=== PATIENT | female | born 1935 | race Caucasian/White ===

== ENCOUNTER → 2016-11-04 | Outpatient (CLI) | payer OTHER | LOC: LAB 10:43 | PROVIDERS: ATTEND Internal Medicine Gastroenterology | DX: K64.0 First degree hemorrhoids (principal) | CPT/HCPCS: 82270 ==

== ENCOUNTER 2016-12-30 15:54 | Inpatient (IN) | payer OTHER ==
--- NOTE | 2016-12-30 16:30 | RAD ---
Examination: X-rays of the right shoulder. Clinical history: Fell in the yd, right shoulder pain. Technique: Three views of the right shoulder were obtained. Comparison: None available. Findings: The bones are diffusely osteopenic. There is a comminuted fracture of the proximal humerus, with displacement of fracture fragments at th e fracture site. There is mild distraction of the fracture fragments, with no appreciable angulation noted. No soft tissue abnormality is noted. Impression: 1. Fracture of the proximal right humerus. Reported By:
--- NOTE | 2016-12-30 16:49 | DR.GENAD ---
HPI - PCP Primary Care Physician: REINA DAVIS - HPI Comment HPI Comment: NO LOSS OF CONSCIOUSNESS. DID NOT HIT HEAD. SEVERE PAIN REPORTED. - Complaint/Symptoms Chief Complaint Doctors Comments: FELL AT HOME DOING YARD WORK. SWELLING AND PAIN RIGHT SHOULDER. Chief Complaint:: PT C/O BEING OUTSIDE AND CLEANING UP HER YARD AND SHE TRIPPED OVER A ROUTE AND SHE HIT THE GROUND ON HER RIGHT SHOULDER AND SHE THINKS SHE MAY OF HIT HER RIGHT SHOULDER ON ROOT.. Self Treatment fo Chief Complaint: NO ABN NOTED PT IS HOLDING HER RIGHT SHOULDER AND SHE SAYS IT ONLY HURTS WHEN SHE MOVES... - Nurses notes reviewed Nurses Notes Review: Yes - Source History Provided: Patient, EMS - Mode of Arrival Mode of Arrival: EMS - Timing Onset of Chief Complaint: 12/30/16 Came on: Suddenly - Duration Duration: Constant Duration: Hours - Severity Severity: Moderate PMH - PMH Past Medical History: Yes Past Medical History: Hypertension Past Medical History Comment: SKIN CANCER Past Surgical History: Yes - Family History History of Family Medical Conditions: No - Social History Does patient currently use any type of tobacco product: No Have you used tobacco products in the last 12 months: No Type of Tobacco Use: None Does any household member use tobacco: No Alcohol Use: None Do you use any recreational Drugs:: No Lives With: Alone Lives Where: Home - infectious screening In the last 2 months have you had wt loss of >10#?: NO Have you had fever, night sweats or hemotysis?: No Have you traveled outside the country in the last 6 months?: No Isolation: Standard ROS - Review of Systems Constitutional: No Symptoms Reported Eyes: No Symptoms Reported ENTM: No Symptoms Reported Respiratoy: No Symptoms Reported Cardiovascular: No Symptoms Reported Gastrointestinal/Abdominal: No Symptoms Reported Genitourinary: No Symptoms Reported Neurological: No Symptoms Reported Integumentary: Bruises (SWELLING RT SHOULDER) Hematologic/Lymphatic: No Symptoms Reported Endocrine: No Symptoms Reported All Other Systems: Reviewed and Negative PE - Vital Signs Vitals: Temperature 97.9 F Pulse Rate [Left Brachial] 73 Pulse Rate 93 Respiratory Rate 22 Blood Pressure [Left Arm] 144/66 Blood Pressure 172/73 O2 Sat by Pulse Oximetry 79 - General Limitations: No Limitations General Appearance: Alert - Head Head Exam: Normal Inspection - Eyes Eye exam: Normal Appearance - ENT ENT Exam: Normal External Ear Exam External Ear Exam: Normal External Inspection TM/Canal Exam: Bilateral Normal Nose Exam: Normal Nose Exam Mouth Exam: Normal Inspection Throat Exam: Normal Inspection - Neck Neck Exam: Trachea Midline - Chest Chest Inspection: Symmetric Chest Wall Rise - Respiratory Respiratory Exam: Normal Lung Sounds Bilat, Chest Wall Tenderness (RIGHT UPPER CHEST WALL TENDERNESS NEAR RT SHOULDER.) Respiratory Exam: Bilateral Crackles, Lower Crackles - Cardiovascular Cardiovascular Exam: Regular Rate, Normal Rhythm, Normal Heart Sounds - Abdominal Exam Abdominal Exam: Normal Bowel Sounds, Soft. negative: Tenderness - Extremities Extremities Exam: Tenderness (RT SHOULDER TENDERNESS), Joint Swelling (RT SHOULDER). negative: Full ROM (ROM DECREASE.) - Back Back Exam: Normal Inspection - Neurologic Neurological Exam: Alert, Oriented X3, CN II-XII Intact, Normal Gait, Reflexes Normal. negative: Motor Sensory Deficit - Psychiatric Psychiatric Exam: Anxious - Skin Skin Exam: Erythema MDM - Additional Information Additional Information Obtained From: Family - Differential Diagnosis Differential Diagnosis: FRACTURE, DISLOCATION, CONTUSION, SPRAIN, STRAIN RT SHOULDER, FALL. Course - Treatment Treatment: SEE ORDERS. IV PAIN MED IN ED. SPLINT APPLIED IN ED. - Reevaluation 1st: Improved (PAIN DECREASING.) - Consultation Consultation Comments: DISCUSS PATIENT WITH DR. VARGAS, ORTHO, SPLINT SUGGESTED. DISCUSS PATIENT WITH DR. HUANG. HE WILL ADMIT PATIENT FOR PAIN CONTROL. - Education/Counseling Education/Counseling: Patient, Family, Education Educated On: Treatment, Diagnosis, Needs for Follow Up ROR - Labs Reviewed Laboratory Results Reviewed?: Yes Result Diagrams: 12/30/16 19:55 12/30/16 19:55 - XRAY XRAY Interpreted by: Radiologist XRAY Findings: REPORT DISCUSS WITH PATIENT AND HER FAMILY. - EKG Rhythm: NSR (EKG NOTED.) - Diagnosis Discharge Problem: Fracture of right shoulder Qualifiers: Encounter type: initial encounter Fracture type: closed Qualified Code(s): S42.91XA - Fracture of right shoulder girdle, part unspecified, initial encounter for closed fracture - Discharge Plan Disposition: ADMITTED INPATIENT Condition: Stable - Follow ups/Referrals - Instructions
[2016-12-30] MEDS ORDERED: ZOFRAN INJ 4 MG VIAL IVP ONE (18:10)
[2016-12-30] MEDS ORDERED: MORPHINE SULFATE INJ 2 MG INJ IVP ONE (18:10)
[2016-12-30] MEDS ORDERED: ZOFRAN INJ 4 MG VIAL ONE (18:15)
[2016-12-30] MEDS ORDERED: MORPHINE SULFATE INJ 2 MG INJ ONE (18:15)
[2016-12-30] MEDS ORDERED: MORPHINE SULFATE INJ 4 MG IVP PRN (19:48)
[2016-12-30] MEDS ORDERED: ZOFRAN INJ 4 MG VIAL IVP PRN (19:48)
[2016-12-30] MEDS: NS 1000 ML 1,000 ML IV SCH (20:00)
[2016-12-30 20:11] LABS: BASOPHILS # (AUTO) 0.1 X10^3/uL (0.0-0.1); BASOPHILS % (AUTO) 0.8 % (0.2-1.0); EOSINOPHILS % (AUTO) 0.1 % (0.9-2.9); HEMATOCRIT 38.4 % (36.0-47.0); LYMPHOCYTES # (AUTO) 1.7 X10^3/uL (1.3-2.9); LYMPHOCYTES % (AUTO) 11.5 % (21.0-51.0); MEAN CORPUSCULAR HEMOGLOBIN 30.9 pg (27.0-34.0); MEAN CORPUSCULAR HGB CONC 33.9 g/dL (33.0-35.0); MEAN PLATELET VOLUME 8.4 fL (7.4-11.0); MONOCYTES # (AUTO) 0.8 x10^3/uL (0.3-0.8); MONOCYTES % (AUTO) 5.7 % (0.0-13.0); NEUTROPHILS # (AUTO) 11.9 x10^3/uL (2.2-4.8); NEUTROPHILS % (AUTO) 81.9 % (42.0-75.0); PLATELET COUNT 269 X10^3/uL (150.0-450.0); RED BLOOD COUNT 4.23 X10^6/uL (3.5-5.4); RED CELL DISTRIBUTION WIDTH 12.9 % (11.6-16.5); WHITE BLOOD COUNT 14.6 X10^3/uL (3.6-10.0)
[2016-12-30 20:17] LABS: ALANINE AMINOTRANSFERASE 23 Units/L (12-78); ALBUMIN 3.6 g/dL (3.4-5.0); ALKALINE PHOSPHATASE 38 Units/L (46-116); ASPARTATE AMINO TRANSFERASE 20 Units/L (15-37); BLOOD UREA NITROGEN 23 mg/dL (7-18); CARBON DIOXIDE 26.2 mmol/L (21-32); CHLORIDE 105 mmol/L (98-107); COR NA(FOR HYPERGLY) 141 mmol/L (136-145); CREATININE 1.12 mg/dL (0.55-1.02); SODIUM 139 mmol/L (136-145); TOTAL PROTEIN 6.9 g/dL (6.4-8.2); eGFR BLACK RACES > 60 (>60); eGFR NON BLACK RACES 50 (>60)
--- NOTE | 2016-12-30 21:13 | RAD ---
AP Chest Indication: Chest pain with recent fall Comparison: None available Findings: The trachea is midline. The cardiac silhouette is unremarkable. The lungs are clear without focal i nfiltrate or effusion. As a displaced fracture the proximal right humerus centered at the surgical n julianna with suspected displacement both the greater and lesser tuberosities. IMPRESSION: 1. No acute cardiopulmonary abnormality. 2. Displaced fracture the proximal right humerus centered at the surgical neck with extension of frac ture and suspected displacement of both the greater and lesser tuberosities. Reported By:
[2016-12-30 21:32] VITALS: BMI 32.7
--- NOTE | 2016-12-31 11:47 | DR.H&P ---
H&P - History & Physical for Day of: H&P Date: 12/30/16 - Chief Complaint Chief Complaint: RIGHT SHOULDER PAIN - Allergies Allergies/Adverse Reactions: Allergies Allergy/AdvReac Type Severity Reaction Status Date / Time penicillin G Allergy Verified 12/30/16 16:04 - History of Present Illness History of Present Illness: IS A 81 YEAR OLD PATIENT OF OURS WHO PRESENTED TO THE EMERGENCY ROOM WITH COMPLAINTS OF RIGHT SHOULDER PAIN. PATIENT REPORTS THAT SHE WAS PICKING UP LIMBS IN HER YARD AND TRIPPED OVER A ROOT. PATIENT REPORTS THAT SHE LANDED ON HER RIGHT SHOULDER. ON ARRIVAL TO THE ER, VITALS WERE 97.9-93-22-97%-172/73. CBC WNL EXCEPT WBC 14.6. CMP WNL EXCEPT BUN 23, CREATININE 1.12. GLUCOSE 193, ALK PHOS 38. SHOULDER XRAY REPORTED FRACTURE OF THE PROXIMAL RIGHT HUMERUS. CHEST XRAY WAS OBTAINED AND REPORTED NO ACUTE CARDIOPULMONARY ABNORMALITY AND DISPLACED FRACTURE OF THE PROXIMAL RIGHT HUMERUS CENTERED AT THE SURGICAL NECK WITH EXTENSION OF FRACTURE AND SUSPECTED DISPLACEMENT OF BOTH THE GREATER AND LESSER TUBEROSITIES. EKG REPORTED SINUS RHYTHM WITH RATE OF 78. PATIENT WAS GIVEN MORPHINE 2MG AND ZOFRAN 4 MG IN ER. WE ADMITTED PATIENT FOR FURTHER TREATMENT AND OBSERVATION. WE PLAN TO CONTROL PATIENT'S PAIN WITH IV PAIN MEDICATIONS. SHE WAS STARTED ON NORMAL SALINE AT 30ML/HR, MORPHINE 4MG IV Q6H PRN PAIN, AND ZOFRAN 4MG IV Q8H PRN NAUSEA. WE WILL CONSULT , RECHECK AM LABS, AND CONTINUE TO FOLLOW UP WITH PATIENT. 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) - Past Surgical History Surgical History: Cholecystectomy - Family History Family Medical History: Cancer, Hypertension - Social History Does patient currently use any type of tobacco product: No Have you used tobacco products in the last 12 months: No Type of Tobacco Use: None Does any household member use tobacco: No Alcohol Use: None Drug Use: None - Medications Home Medications: Amlodipine Besylate [NORVASC 5 MG *] 5 mg PO DAILY 12/30/16 [History Confirmed 12/30/16] Aspirin [Aspirin 81 mg Chewtab] 81 mg PO DAILY 12/30/16 [History Confirmed 12/30] Cetirizine HCl [Zyrtec] 10 mg PO HS 12/30/16 [History Confirmed 12/30/16] Folic Acid [Folic Acid Tab 1 mg] 1 mg PO DAILY 12/30/16 [History Confirmed 12/30] Levothyroxine Sodium 100 mcg PO DAILY 12/30/16 [History Confirmed 12/30/16] Lisinopril 20 mg PO DAILY 12/30/16 [History Confirmed 12/30/16] Meloxicam [Mobic Tab 15 mg] 15 mg PO DAILY 12/30/16 [History Confirmed 12/30/16] Simvastatin 40 mg PO HS 12/30/16 [History Confirmed 12/30/16] - Review of Systems Constitutional: No Symptoms Reported Eyes: No Symptoms Reported ENT: No Symptoms Reported Respiratory: No Symptoms Reported Cardiovascular: No Symptoms Reported Gastrointestinal: No Symptoms Reported Genitourinary: No Symptoms Reported Musculoskeletal: See HPI, Shoulder Pain (RIGHT SHOULDER PAIN ) Skin: Bruising Neurological: No Symptoms Reported - Physical Exam Vital Signs: Temperature 97.8 F Pulse Rate [Left Brachial] 78 Pulse Rate 93 Respiratory Rate 20 Blood Pressure [Left Arm] 129/60 Blood Pressure 172/73 O2 Sat by Pulse Oximetry 98 Oriented: Normal Eyes: Normal Ear: Normal Nose: Normal Throat: Normal Respiratory: Clear Throughout Cardiovascular: Normal : Normal Auscultation: Bowel Sounds: Normal Palpation: Normal Tenderness: Normal. negative: Rebound, Guarding, Rigidity Skin: Tender (RIGHT SHOULDER ), Bruising Musculoskeletal: Right, Shoulder, Tender, Instability Psychiatric: Normal Mood Description: Calm Affect: Normal Speech Pattern: Clear - Assessment/Plan (1) Fracture of right shoulder Qualifiers: Encounter type: initial encounter Fracture type: closed Qualified Code(s) : S42.91XA - Fracture of right shoulder girdle, part unspecified, initial encounter for closed fracture Status: Acute Plan: MORPHINE 4MG IV Q6H PRN PAIN, ORTHO CONSULT, CONTINUE TO MONITOR
--- NOTE | 2016-12-31 12:25 | DR.CONSULT ---
Consult - Consultation for Day of: Date: 12/31/16 (thanks for the consult. ) - Chief Complaint Chief Complaint: rt shoulder fracture - Allergies Allergies/Adverse Reactions: Allergies Allergy/AdvReac Type Severity Reaction Status Date / Time penicillin G Allergy Verified 12/30/16 16:04 - History of Present Illness History of Present Illness: H/O fall in yard and fractured right shoulder. admitted for pain control. unable to move rt shoulder. severe pain with any slight movement. 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) - Past Surgical History Surgical History: Cholecystectomy - Family History Family Medical History: Cancer, Hypertension - Social History Does patient currently use any type of tobacco product: No Have you used tobacco products in the last 12 months: No Type of Tobacco Use: None Does any household member use tobacco: No Alcohol Use: None Drug Use: None - Medications Home Medications: Amlodipine Besylate [NORVASC 5 MG *] 5 mg PO DAILY 12/30/16 [History Confirmed 12/30/16] Aspirin [Aspirin 81 mg Chewtab] 81 mg PO DAILY 12/30/16 [History Confirmed 12/30] Cetirizine HCl [Zyrtec] 10 mg PO HS 12/30/16 [History Confirmed 12/30/16] Folic Acid [Folic Acid Tab 1 mg] 1 mg PO DAILY 12/30/16 [History Confirmed 12/30] Levothyroxine Sodium 100 mcg PO DAILY 12/30/16 [History Confirmed 12/30/16] Lisinopril 20 mg PO DAILY 12/30/16 [History Confirmed 12/30/16] Meloxicam [Mobic Tab 15 mg] 15 mg PO DAILY 12/30/16 [History Confirmed 12/30/16] Simvastatin 40 mg PO HS 12/30/16 [History Confirmed 12/30/16] - Physical Exam Vital Signs: Temperature 97.8 F Pulse Rate [Left Brachial] 78 Pulse Rate 93 Respiratory Rate 20 Blood Pressure [Left Arm] 129/60 Blood Pressure 172/73 O2 Sat by Pulse Oximetry 98 Musculoskeletal: Right, Shoulder, Swelling, Tender, Deformity, Crepitance - Plan Plan: ORIF rt shoulder. Discussed with family the natural history and treatment options. wants to proceed with surgery.
[2016-12-31] MEDS: TORADOL 15 MG VIAL IVP SCH ×3 (15:45→22:50)
[2016-12-31] MEDS: NS 1000 ML 1,000 ML IV SCH ×2 (15:45→22:49)
[2016-12-31] MEDS ORDERED: ZESTRIL TAB 20 MG ONE (15:56)
[2016-12-31] MEDS: FOLIC ACID TAB 1 MG PO SCH (15:57)
[2016-12-31] MEDS: ZESTRIL TAB 20 MG PO SCH (15:58)
[2016-12-31] MEDS: NORVASC TAB 5 MG PO SCH (15:58)
[2016-12-31] MEDS: SYNTHROID 100 mcg TAB PO SCH (15:58)
[2016-12-31] MEDS ORDERED: PATIENT'S HOME MEDICATION (Cetirizine Hcl [Zyrtec] 10 MG) PO SCH (21:00)
[2016-12-31] MEDS: ZyrTEC TAB 10 MG PO SCH (21:05)
[2016-12-31] MEDS: ZOCOR TAB 40 MG PO SCH (21:05)
--- NOTE | 2016-12-31 22:02 | PCM.PROG ---
Progress Note - Progress Note for Day of Date: 12/31/16 - Past Medical Family Social History Past Med/Fam/Surg Hx: No changes since H&P Allergies: Allergies penicillin G Allergy (Verified 12/30/16 16:04) - Review of Systems ROS: No change since H&P - Vital Signs and I&O's Vital Signs: Temperature 98.8 F Pulse Rate [Left Brachial] 79 Pulse Rate 93 Respiratory Rate 18 Blood Pressure [Left Arm] 131/61 Blood Pressure 172/73 O2 Sat by Pulse Oximetry 94 Intake and Output: Intake & Output 12/29/16 12/30/16 12/31/16 01/01/17 11:59 11:59 11:59 11:59 Intake Total 709 720 Output Total 1000 Balance 709 -280 - Physical Exam Oriented: Normal Eyes: Normal Ear: Normal Nose: Normal Throat: Normal Respiratory: Normal Cardiovascular: Normal : Normal Auscultation: Bowel Sounds: Normal Palpation: Normal Tenderness: Normal. negative: Rebound, Guarding, Rigidity Skin: Tender (RIGHT SHOULDER ), Bruising Musculoskeletal: Right, Shoulder, Tender, Instability Psychiatric: Normal Mood Description: Calm Affect: Normal Speech Pattern: Clear - Laboratory and Diagnostics Result Diagrams: 12/30/16 19:55 12/30/16 19:55 Labs: Laboratory WBC 14.6 X10^3/uL (3.6-10.0) H 12/30/16 19:55 RBC 4.23 X10^6/uL (3.5-5.4) 12/30/16 19:55 Hgb 13.0 g/dL (12.0-16.0) 12/30/16 19:55 Hct 38.4 % (36.0-47.0) 12/30/16 19:55 MCV 91.0 fL (80.0-100.0) 12/30/16 19:55 MCH 30.9 pg (27.0-34.0) 12/30/16 19:55 MCHC 33.9 g/dL (33.0-35.0) 12/30/16 19:55 RDW 12.9 % (11.6-16.5) 12/30/16 19:55 Plt Count 269 X10^3/uL (150.0-450.0) 12/30/16 19:55 MPV 8.4 fL (7.4-11.0) 12/30/16 19:55 Neut % 81.9 % (42.0-75.0) H 12/30/16 19:55 Lymph % 11.5 % (21.0-51.0) L 12/30/16 19:55 [place] % 5.7 % (0.0-13.0) 12/30/16 19:55 Eos % 0.1 % (0.9-2.9) L 12/30/16 19:55 Baso % 0.8 % (0.2-1.0) 12/30/16 19:55 Neut # 11.9 x10^3/uL (2.2-4.8) H 12/30/16 19:55 Lymph # 1.7 X10^3/uL (1.3-2.9) 12/30/16 19:55 [place] # 0.8 x10^3/uL (0.3-0.8) 12/30/16 19:55 Eos # 0.0 x10^3/uL (0.0-0.2) 12/30/16 19:55 Baso # 0.1 X10^3/uL (0.0-0.1) 12/30/16 19:55 Absolute Nucleated RBC 0.0 /100WBC 12/30/16 19:55 Sodium 139 mmol/L (136-145) 12/30/16 19:55 Corrected Sodium 141 mmol/L (136-145) 12/30/16 19:55 Potassium 4.1 mmol/L (3.5-5.1) 12/30/16 19:55 Chloride 105 mmol/L (98-107) 12/30/16 19:55 Carbon Dioxide 26.2 mmol/L (21-32) 12/30/16 19:55 BUN 23 mg/dL (7-18) H 12/30/16 19:55 Creatinine 1.12 mg/dL (0.55-1.02) H 12/30/16 19:55 Est GFR (MDRD) Af Amer > 60 (>60) 12/30/16 19:55 Est GFR (MDRD) Non-Af 50 (>60) L 12/30/16 19:55 Glucose 193 mg/dL (65-99) H 12/30/16 19:55 Calcium 10.0 mg/dL (8.5-10.1) 12/30/16 19:55 Corrected Calcium TNP 12/30/16 19:55 Total Bilirubin 0.30 mg/dL (0.2-1.0) 12/30/16 19:55 AST 20 Units/L (15-37) 12/30/16 19:55 ALT 23 Units/L (12-78) 12/30/16 19:55 Alkaline Phosphatase 38 Units/L (46-116) L 12/30/16 19:55 Total Protein 6.9 g/dL (6.4-8.2) 12/30/16 19:55 Albumin 3.6 g/dL (3.4-5.0) 12/30/16 19:55 Globulin 3.3 g/dL (2.5-4.5) 12/30/16 19:55 Albumin/Globulin Ratio 1.1 Ratio (1.1-2.1) 12/30/16 19:55 - Plan (1) Fracture of right shoulder Status: Acute Qualifiers: Encounter type: initial encounter Fracture type: closed Qualified Code(s) : S42.91XA - Fracture of right shoulder girdle, part unspecified, initial encounter for closed fracture Plan: MORPHINE 4MG IV Q6H PRN PAIN, ORTHO CONSULT, CONTINUE TO MONITOR
[2017-01-01 06:13] LABS: BASOPHILS # (AUTO) 0.1 X10^3/uL (0.0-0.1); EOSINOPHILS # (AUTO) 0.2 x10^3/uL (0.0-0.2); EOSINOPHILS % (AUTO) 2.6 % (0.9-2.9); HEMATOCRIT 34.4 % (36.0-47.0); LYMPHOCYTES # (AUTO) 2.4 X10^3/uL (1.3-2.9); LYMPHOCYTES % (AUTO) 30.3 % (21.0-51.0); MEAN CORPUSCULAR HEMOGLOBIN 31.4 pg (27.0-34.0); MEAN CORPUSCULAR HGB CONC 34.8 g/dL (33.0-35.0); MEAN CORPUSCULAR VOLUME 90.3 fL (80.0-100.0); MEAN PLATELET VOLUME 8.5 fL (7.4-11.0); MONOCYTES # (AUTO) 1.1 x10^3/uL (0.3-0.8); MONOCYTES % (AUTO) 13.6 % (0.0-13.0); NEUTROPHILS # (AUTO) 4.2 x10^3/uL (2.2-4.8); NEUTROPHILS % (AUTO) 52.5 % (42.0-75.0); PLATELET COUNT 219 X10^3/uL (150.0-450.0); RED CELL DISTRIBUTION WIDTH 13.2 % (11.6-16.5); WHITE BLOOD COUNT 7.9 X10^3/uL (3.6-10.0)
[2017-01-01 06:41] LABS: ALANINE AMINOTRANSFERASE 19 Units/L (12-78); ALBUMIN 2.9 g/dL (3.4-5.0); ALKALINE PHOSPHATASE 31 Units/L (46-116); ASPARTATE AMINO TRANSFERASE 20 Units/L (15-37); BLOOD UREA NITROGEN 20 mg/dL (7-18); CALCIUM 9.3 mg/dL (8.5-10.1); CARBON DIOXIDE 25.6 mmol/L (21-32); CHLORIDE 110 mmol/L (98-107); COR CA(FOR HYPOALB) 10.2 mg/dL (8.5-10.1); CREATININE 0.91 mg/dL (0.55-1.02); SODIUM 143 mmol/L (136-145); TOTAL PROTEIN 6.3 g/dL (6.4-8.2); eGFR BLACK RACES > 60 (>60); eGFR NON BLACK RACES > 60 (>60)
[2017-01-01] MEDS: ZESTRIL TAB 20 MG PO SCH ×2 (08:14→11:10)
[2017-01-01] MEDS: FOLIC ACID TAB 1 MG PO SCH ×2 (08:14→11:10)
[2017-01-01] MEDS: SYNTHROID 100 mcg TAB PO SCH ×2 (08:14→11:10)
[2017-01-01] MEDS: NORVASC TAB 5 MG PO SCH ×2 (08:14→11:10)
[2017-01-01] MEDS ORDERED: ZESTRIL TAB 20 MG ONE (11:08)
[2017-01-01] MEDS: NS 1000 ML 1,000 ML IV SCH (14:27)
--- NOTE | 2017-01-01 20:16 | PCM.PROG ---
Progress Note - Progress Note for Day of Date: 01/01/17 - Subjective Subjective: IS ALERT AND ORIENTED, LYING IN BED ON MORNING ROUNDS. PATIENT'S GRANDDAUGHTER AT BEDSIDE. PATIENT CONTINUES WITH COMPLAINTS OF RIGHT SHOULDER PAIN. SHE IS SCHEDULED FOR SURGERY WITH THIS AM. VITALS THIS AM ARE 98.7-68-18-95%-123/57. ABNORMAL LAB VALUES THIS MORNING INCLUDE HCT 34.4, CHLORIDE 110, BUN 20, ALK PHOS 31, TOTAL PROTEIN 6.3, ALBUMIN 2.9. WE WILL CONTINUE WITH CURRENT PLAN OF CARE, RECHECK AM LABS, AND CONTINUE TO FOLLOW UP WITH PATIENT. - Past Medical Family Social History Past Med/Fam/Surg Hx: No changes since H&P Allergies: Allergies penicillin G Allergy (Verified 12/30/16 16:04) - Review of Systems ROS: No change since H&P - Vital Signs and I&O's Vital Signs: Temperature 97.9 F Pulse Rate [Left Brachial] 73 Pulse Rate 93 Respiratory Rate 18 Blood Pressure [Left Arm] 118/57 Blood Pressure 172/73 O2 Sat by Pulse Oximetry 96 Intake and Output: Intake & Output 12/30/16 12/31/16 01/01/17 01/02/17 11:59 11:59 11:59 11:59 Intake Total 709 1010 401 Output Total 1300 Balance 709 -290 401 - Physical Exam Oriented: Normal Eyes: Normal Ear: Normal Nose: Normal Throat: Normal Respiratory: Normal Cardiovascular: Normal : Normal Auscultation: Bowel Sounds: Normal Palpation: Normal Tenderness: Normal. negative: Rebound, Guarding, Rigidity Skin: Normal, Tender (RIGHT SHOULDER ), Bruising Musculoskeletal: Right, Shoulder, Tender, Instability Psychiatric: Normal Mood Description: Calm Affect: Normal Speech Pattern: Clear, Appropriate - Laboratory and Diagnostics Result Diagrams: 01/01/17 05:15 01/01/17 05:15 Labs: Laboratory WBC 7.9 X10^3/uL (3.6-10.0) 01/01/17 05:15 RBC 3.80 X10^6/uL (3.5-5.4) 01/01/17 05:15 Hgb 12.0 g/dL (12.0-16.0) 01/01/17 05:15 Hct 34.4 % (36.0-47.0) L 01/01/17 05:15 MCV 90.3 fL (80.0-100.0) 01/01/17 05:15 MCH 31.4 pg (27.0-34.0) 01/01/17 05:15 MCHC 34.8 g/dL (33.0-35.0) 01/01/17 05:15 RDW 13.2 % (11.6-16.5) 01/01/17 05:15 Plt Count 219 X10^3/uL (150.0-450.0) 01/01/17 05:15 MPV 8.5 fL (7.4-11.0) 01/01/17 05:15 Neut % 52.5 % (42.0-75.0) 01/01/17 05:15 Lymph % 30.3 % (21.0-51.0) 01/01/17 05:15 [place] % 13.6 % (0.0-13.0) H 01/01/17 05:15 Eos % 2.6 % (0.9-2.9) 01/01/17 05:15 Baso % 1.0 % (0.2-1.0) 01/01/17 05:15 Neut # 4.2 x10^3/uL (2.2-4.8) 01/01/17 05:15 Lymph # 2.4 X10^3/uL (1.3-2.9) 01/01/17 05:15 [place] # 1.1 x10^3/uL (0.3-0.8) H 01/01/17 05:15 Eos # 0.2 x10^3/uL (0.0-0.2) 01/01/17 05:15 Baso # 0.1 X10^3/uL (0.0-0.1) 01/01/17 05:15 Absolute Nucleated RBC 0.0 /100WBC 01/01/17 05:15 Sodium 143 mmol/L (136-145) 01/01/17 05:15 Corrected Sodium TNP 01/01/17 05:15 Potassium 3.9 mmol/L (3.5-5.1) 01/01/17 05:15 Chloride 110 mmol/L (98-107) H 01/01/17 05:15 Carbon Dioxide 25.6 mmol/L (21-32) 01/01/17 05:15 BUN 20 mg/dL (7-18) H 01/01/17 05:15 Creatinine 0.91 mg/dL (0.55-1.02) 01/01/17 05:15 Est GFR (MDRD) Af Amer > 60 (>60) 01/01/17 05:15 Est GFR (MDRD) Non-Af > 60 (>60) 01/01/17 05:15 Glucose 88 mg/dL (65-99) 01/01/17 05:15 Calcium 9.3 mg/dL (8.5-10.1) 01/01/17 05:15 Corrected Calcium 10.2 mg/dL (8.5-10.1) H 01/01/17 05:15 Total Bilirubin 0.50 mg/dL (0.2-1.0) 01/01/17 05:15 AST 20 Units/L (15-37) 01/01/17 05:15 ALT 19 Units/L (12-78) 01/01/17 05:15 Alkaline Phosphatase 31 Units/L (46-116) L 01/01/17 05:15 Total Protein 6.3 g/dL (6.4-8.2) L 01/01/17 05:15 Albumin 2.9 g/dL (3.4-5.0) L 01/01/17 05:15 Globulin 3.4 g/dL (2.5-4.5) 01/01/17 05:15 Albumin/Globulin Ratio 0.9 Ratio (1.1-2.1) L 01/01/17 05:15 - Plan (1) Fracture of right shoulder Status: Acute Qualifiers: Encounter type: initial encounter Fracture type: closed Qualified Code(s) : S42.91XA - Fracture of right shoulder girdle, part unspecified, initial encounter for closed fracture Plan: MORPHINE 4MG IV Q6H PRN PAIN, ORTHO CONSULT, CONTINUE TO MONITOR
[2017-01-01] MEDS: ZOCOR TAB 40 MG PO SCH (21:00)
[2017-01-01] MEDS: ZyrTEC TAB 10 MG PO SCH (21:00)
[2017-01-02] MEDS: NS 1000 ML 1,000 ML IV SCH ×2 (03:36→13:00)
[2017-01-02 05:22] LABS: ALANINE AMINOTRANSFERASE 17 Units/L (12-78); ALBUMIN 2.9 g/dL (3.4-5.0); ALKALINE PHOSPHATASE 30 Units/L (46-116); ASPARTATE AMINO TRANSFERASE 19 Units/L (15-37); BLOOD UREA NITROGEN 15 mg/dL (7-18); CARBON DIOXIDE 23.1 mmol/L (21-32); CHLORIDE 111 mmol/L (98-107); COR CA(FOR HYPOALB) 9.9 mg/dL (8.5-10.1); CREATININE 0.79 mg/dL (0.55-1.02); SODIUM 143 mmol/L (136-145); TOTAL PROTEIN 6.1 g/dL (6.4-8.2); eGFR BLACK RACES > 60 (>60); eGFR NON BLACK RACES > 60 (>60)
[2017-01-02 05:23] LABS: BASOPHILS # (AUTO) 0.1 X10^3/uL (0.0-0.1); BASOPHILS % (AUTO) 1.1 % (0.2-1.0); EOSINOPHILS # (AUTO) 0.2 x10^3/uL (0.0-0.2); EOSINOPHILS % (AUTO) 2.1 % (0.9-2.9); HEMATOCRIT 33.9 % (36.0-47.0); HEMOGLOBIN 11.8 g/dL (12.0-16.0); LYMPHOCYTES # (AUTO) 2.6 X10^3/uL (1.3-2.9); LYMPHOCYTES % (AUTO) 27.3 % (21.0-51.0); MEAN CORPUSCULAR HEMOGLOBIN 31.4 pg (27.0-34.0); MEAN CORPUSCULAR HGB CONC 34.8 g/dL (33.0-35.0); MEAN CORPUSCULAR VOLUME 90.3 fL (80.0-100.0); MEAN PLATELET VOLUME 8.4 fL (7.4-11.0); MONOCYTES # (AUTO) 1.1 x10^3/uL (0.3-0.8); NEUTROPHILS # (AUTO) 5.5 x10^3/uL (2.2-4.8); NEUTROPHILS % (AUTO) 57.5 % (42.0-75.0); PLATELET COUNT 226 X10^3/uL (150.0-450.0); RED BLOOD COUNT 3.76 X10^6/uL (3.5-5.4); RED CELL DISTRIBUTION WIDTH 12.5 % (11.6-16.5); WHITE BLOOD COUNT 9.5 X10^3/uL (3.6-10.0)
[2017-01-02] MEDS: NORVASC TAB 5 MG PO SCH (09:11)
[2017-01-02] MEDS: ZESTRIL TAB 20 MG PO SCH (09:11)
[2017-01-02] MEDS: FOLIC ACID TAB 1 MG PO SCH (09:11)
[2017-01-02] MEDS: SYNTHROID 100 mcg TAB PO SCH (09:11)
[2017-01-02] MEDS ORDERED: XYLOCAINE 2 % (PLAIN) ONE ×2 (10:17→15:39)
[2017-01-02] MEDS ORDERED: NAROPIN 0.75% ONE (10:17)
[2017-01-02] MEDS ORDERED: FENTANYL INJ 250 mcg ONE (10:44)
[2017-01-02] MEDS ORDERED: CLEOCIN VIAL 600 MG ONE (10:56)
[2017-01-02] MEDS ORDERED: NS 100 ML IV 100 ML IV ONE (10:57)
[2017-01-02] MEDS: D5 LR 1000 ML 1,000 ML IV ONE ×2 (11:20→12:07)
[2017-01-02] MEDS ORDERED: NS IRRIGATION 1000 ML 1,000 ML with BACITRACIN VIAL 50,000 UNT IR ONE ×4 (11:49→14:00)
[2017-01-02] MEDS ORDERED: LR 1000 ML IV 1,000 ML IV ONE (13:56)
[2017-01-02] MEDS ORDERED: BACITRACIN VIAL ONE (14:01)
[2017-01-02] MEDS ORDERED: BACTROBAN OINT ONE (14:12)
[2017-01-02] MEDS ORDERED: MARCAINE 0.25% INJ ONE (14:18)
[2017-01-02] MEDS ORDERED: PERCOCET TAB 5/325 MG PO PRN (14:42)
[2017-01-02] MEDS ORDERED: DILAUDID INJ IVP PRN (14:56)
[2017-01-02] MEDS ORDERED: PHENERGAN INJ 25 MG IVP PRN (14:56)
[2017-01-02] MEDS ORDERED: ZOFRAN INJ 4 MG VIAL IVP PRN (14:56)
[2017-01-02] MEDS ORDERED: BENADRYL INJ 50 MG VIAL IVP PRN (14:56)
[2017-01-02] MEDS ORDERED: REGLAN INJ 10 MG VIAL IVP PRN (14:56)
[2017-01-02] MEDS ORDERED: VERSED ONE (15:39)
[2017-01-02] MEDS ORDERED: ZOFRAN INJ 4 MG VIAL ONE (15:39)
[2017-01-02] MEDS ORDERED: QUELICIN (OR ANECTINE) ONE (15:39)
[2017-01-02] MEDS ORDERED: SUPRANE IN ONE (15:39)
[2017-01-02] MEDS ORDERED: NORCURON INJ 10 MG VIAL ONE (15:39)
[2017-01-02] MEDS ORDERED: NEOSTIGMINE INJ ONE (15:39)
[2017-01-02] MEDS ORDERED: DIPRIVAN VIAL ONE (15:39)
[2017-01-02] MEDS ORDERED: EPHEDRINE SULFATE INJ ONE (15:39)
[2017-01-02] MEDS ORDERED: ROBINUL ONE (15:39)
--- NOTE | 2017-01-02 15:59 | RAD ---
History: Postop right humerus Study: Right humerus two views Findings: AP and oblique views of the humerus postoperative changes of ORIF of the right and humeral neck fracture. There has been placement of a screw plate device. [place] of relatively normal alignment is seen. No distal fracture of the humerus is seen. Impression: Postop changes of screw plate fixation of the right humeral neck/head Reported By:
[2017-01-02] MEDS: COLACE CAP 100 MG PO SCH (20:58)
[2017-01-02] MEDS: VANCOMYCIN 1 GM PREMIX (ADDVANTAGE) 250 ML IV SCH (20:58)
[2017-01-02] MEDS: ZyrTEC TAB 10 MG PO SCH (20:58)
[2017-01-02] MEDS: MILK OF MAGNESIA PO SCH (20:58)
[2017-01-02] MEDS: ZOCOR TAB 40 MG PO SCH (20:58)
--- NOTE | 2017-01-02 23:01 | PCM.PROG ---
Progress Note - Progress Note for Day of Date: 01/02/17 - Subjective Subjective: WAS ADMITTED FOR A RIGHT SHOULDER FRACTURE AND INTRACTABLE PAIN. SHE IS ALERT AND ORIENTED, LYING IN BED ON MORNING ROUNDS. PATIENT'S GRANDDAUGHTER AT BEDSIDE. PATIENT CONTINUES WITH COMPLAINTS OF RIGHT SHOULDER PAIN. PATIENT WAS SCHEDULED FOR SURGERY WITH YESTERDAY, HOWEVER, SURGERY WAS POSTPONED UNTIL THIS MORNING FOR UNKNOWN REASEON. VITALS THIS AM ARE 98.8-73-20-94%-131/61. LABS WERE OBTAINED. ABNORMAL LAB VALUES THIS MORNING INCLUDE HGB 11.8, HCT 33.9, CHLORIDE 111, ALK PHOS 30, TOTAL PROTEIN 6.1 , ALBUMIN 2.9. WE WILL CONTINUE WITH CURRENT PLAN OF CARE, RECHECK AM LABS, AND CONTINUE TO FOLLOW UP WITH PATIENT. - Past Medical Family Social History Past Med/Fam/Surg Hx: No changes since H&P Allergies: Allergies penicillin G Allergy (Verified 12/30/16 16:04) - Review of Systems ROS: No change since H&P - Vital Signs and I&O's Vital Signs: Temperature 99.3 F Pulse Rate [Left Brachial] 90 Pulse Rate 82 Respiratory Rate 18 Blood Pressure [Left Arm] 124/58 Blood Pressure 138/65 O2 Sat by Pulse Oximetry 94 Intake and Output: Intake & Output 12/31/16 01/01/17 01/02/17 01/03/17 11:59 11:59 11:59 11:59 Intake Total 709 1010 1371 0 Output Total 1300 2200 Balance 709 -290 1371 -2200 - Physical Exam Oriented: Normal Eyes: Normal Ear: Normal Nose: Normal Throat: Normal Respiratory: Normal Cardiovascular: Normal : Normal Auscultation: Bowel Sounds: Normal Palpation: Normal Tenderness: Normal. negative: Rebound, Guarding, Rigidity Skin: Normal, Tender (RIGHT SHOULDER ), Bruising Musculoskeletal: Right, Shoulder, Tender, Instability Psychiatric: Normal Mood Description: Calm Affect: Normal Speech Pattern: Clear, Appropriate - Laboratory and Diagnostics Result Diagrams: 01/02/17 04:35 01/02/17 04:35 Labs: Laboratory WBC 9.5 X10^3/uL (3.6-10.0) 01/02/17 04:35 RBC 3.76 X10^6/uL (3.5-5.4) 01/02/17 04:35 Hgb 11.8 g/dL (12.0-16.0) L 01/02/17 04:35 Hct 33.9 % (36.0-47.0) L 01/02/17 04:35 MCV 90.3 fL (80.0-100.0) 01/02/17 04:35 MCH 31.4 pg (27.0-34.0) 01/02/17 04:35 MCHC 34.8 g/dL (33.0-35.0) 01/02/17 04:35 RDW 12.5 % (11.6-16.5) 01/02/17 04:35 Plt Count 226 X10^3/uL (150.0-450.0) 01/02/17 04:35 MPV 8.4 fL (7.4-11.0) 01/02/17 04:35 Neut % 57.5 % (42.0-75.0) 01/02/17 04:35 Lymph % 27.3 % (21.0-51.0) 01/02/17 04:35 [place] % 12.0 % (0.0-13.0) 01/02/17 04:35 Eos % 2.1 % (0.9-2.9) 01/02/17 04:35 Baso % 1.1 % (0.2-1.0) H 01/02/17 04:35 Neut # 5.5 x10^3/uL (2.2-4.8) H 01/02/17 04:35 Lymph # 2.6 X10^3/uL (1.3-2.9) 01/02/17 04:35 [place] # 1.1 x10^3/uL (0.3-0.8) H 01/02/17 04:35 Eos # 0.2 x10^3/uL (0.0-0.2) 01/02/17 04:35 Baso # 0.1 X10^3/uL (0.0-0.1) 01/02/17 04:35 Absolute Nucleated RBC 0.0 /100WBC 01/02/17 04:35 Sodium 143 mmol/L (136-145) 01/02/17 04:35 Corrected Sodium TNP 01/02/17 04:35 Potassium 3.8 mmol/L (3.5-5.1) 01/02/17 04:35 Chloride 111 mmol/L (98-107) H 01/02/17 04:35 Carbon Dioxide 23.1 mmol/L (21-32) 01/02/17 04:35 BUN 15 mg/dL (7-18) 01/02/17 04:35 Creatinine 0.79 mg/dL (0.55-1.02) 01/02/17 04:35 Est GFR (MDRD) Af Amer > 60 (>60) 01/02/17 04:35 Est GFR (MDRD) Non-Af > 60 (>60) 01/02/17 04:35 Glucose 100 mg/dL (65-99) H 01/02/17 04:35 Calcium 9.0 mg/dL (8.5-10.1) 01/02/17 04:35 Corrected Calcium 9.9 mg/dL (8.5-10.1) 01/02/17 04:35 Total Bilirubin 0.50 mg/dL (0.2-1.0) 01/02/17 04:35 AST 19 Units/L (15-37) 01/02/17 04:35 ALT 17 Units/L (12-78) 01/02/17 04:35 Alkaline Phosphatase 30 Units/L (46-116) L 01/02/17 04:35 Total Protein 6.1 g/dL (6.4-8.2) L 01/02/17 04:35 Albumin 2.9 g/dL (3.4-5.0) L 01/02/17 04:35 Globulin 3.2 g/dL (2.5-4.5) 01/02/17 04:35 Albumin/Globulin Ratio 0.9 Ratio (1.1-2.1) L 01/02/17 04:35 - Plan (1) Fracture of right shoulder Status: Acute Qualifiers: Encounter type: initial encounter Fracture type: closed Qualified Code(s) : S42.91XA - Fracture of right shoulder girdle, part unspecified, initial encounter for closed fracture Plan: MORPHINE 4MG IV Q6H PRN PAIN, ORTHO CONSULT, CONTINUE TO MONITOR
[2017-01-03] MEDS: NS 1000 ML 1,000 ML IV SCH (05:05)
[2017-01-03 05:44] LABS: BASOPHILS % (AUTO) 0.3 % (0.2-1.0); HEMATOCRIT 31.1 % (36.0-47.0); LYMPHOCYTES # (AUTO) 1.6 X10^3/uL (1.3-2.9); LYMPHOCYTES % (AUTO) 12.6 % (21.0-51.0); MEAN CORPUSCULAR HGB CONC 35.3 g/dL (33.0-35.0); MEAN CORPUSCULAR VOLUME 90.9 fL (80.0-100.0); MEAN PLATELET VOLUME 8.7 fL (7.4-11.0); MONOCYTES # (AUTO) 1.5 x10^3/uL (0.3-0.8); MONOCYTES % (AUTO) 12.5 % (0.0-13.0); NEUTROPHILS # (AUTO) 9.2 x10^3/uL (2.2-4.8); NEUTROPHILS % (AUTO) 74.6 % (42.0-75.0); PLATELET COUNT 244 X10^3/uL (150.0-450.0); RED BLOOD COUNT 3.43 X10^6/uL (3.5-5.4); RED CELL DISTRIBUTION WIDTH 12.9 % (11.6-16.5); WHITE BLOOD COUNT 12.4 X10^3/uL (3.6-10.0)
[2017-01-03 05:45] LABS: ALANINE AMINOTRANSFERASE 30 Units/L (12-78); ALBUMIN 2.7 g/dL (3.4-5.0); ALKALINE PHOSPHATASE 33 Units/L (46-116); ASPARTATE AMINO TRANSFERASE 37 Units/L (15-37); BLOOD UREA NITROGEN 18 mg/dL (7-18); CALCIUM 9.3 mg/dL (8.5-10.1); CARBON DIOXIDE 25.5 mmol/L (21-32); CHLORIDE 107 mmol/L (98-107); COR CA(FOR HYPOALB) 10.3 mg/dL (8.5-10.1); COR NA(FOR HYPERGLY) 140 mmol/L (136-145); CREATININE 0.73 mg/dL (0.55-1.02); SODIUM 139 mmol/L (136-145); eGFR BLACK RACES > 60 (>60); eGFR NON BLACK RACES > 60 (>60)
[2017-01-03] MEDS ORDERED: ZESTRIL TAB 20 MG ONE (08:48)
[2017-01-03] MEDS: NORVASC TAB 5 MG PO SCH (08:58)
[2017-01-03] MEDS: ZESTRIL TAB 20 MG PO SCH (08:58)
[2017-01-03] MEDS: VANCOMYCIN 1 GM PREMIX (ADDVANTAGE) 250 ML IV SCH (08:58)
[2017-01-03] MEDS: SYNTHROID 100 mcg TAB PO SCH (08:58)
[2017-01-03] MEDS: FOLIC ACID TAB 1 MG PO SCH (08:58)
[2017-01-03] MEDS: MILK OF MAGNESIA PO SCH ×2 (08:58→20:54)
[2017-01-03] MEDS: ZOCOR TAB 40 MG PO SCH (20:54)
[2017-01-03] MEDS: ZyrTEC TAB 10 MG PO SCH (20:54)
[2017-01-03] MEDS: COLACE CAP 100 MG PO SCH (20:54)
[2017-01-04 05:23] LABS: ALANINE AMINOTRANSFERASE 23 Units/L (12-78); ALBUMIN 2.4 g/dL (3.4-5.0); ALKALINE PHOSPHATASE 28 Units/L (46-116); ASPARTATE AMINO TRANSFERASE 28 Units/L (15-37); BLOOD UREA NITROGEN 15 mg/dL (7-18); CALCIUM 8.9 mg/dL (8.5-10.1); CARBON DIOXIDE 25.1 mmol/L (21-32); CHLORIDE 107 mmol/L (98-107); COR CA(FOR HYPOALB) 10.2 mg/dL (8.5-10.1); COR NA(FOR HYPERGLY) 139 mmol/L (136-145); CREATININE 0.72 mg/dL (0.55-1.02); SODIUM 138 mmol/L (136-145); TOTAL PROTEIN 5.7 g/dL (6.4-8.2); eGFR BLACK RACES > 60 (>60); eGFR NON BLACK RACES > 60 (>60)
[2017-01-04 05:27] LABS: BASOPHILS # (AUTO) 0.1 X10^3/uL (0.0-0.1); BASOPHILS % (AUTO) 0.7 % (0.2-1.0); EOSINOPHILS # (AUTO) 0.1 x10^3/uL (0.0-0.2); EOSINOPHILS % (AUTO) 0.6 % (0.9-2.9); HEMATOCRIT 29.6 % (36.0-47.0); HEMOGLOBIN 10.2 g/dL (12.0-16.0); LYMPHOCYTES # (AUTO) 1.7 X10^3/uL (1.3-2.9); LYMPHOCYTES % (AUTO) 14.4 % (21.0-51.0); MEAN CORPUSCULAR HEMOGLOBIN 31.2 pg (27.0-34.0); MEAN CORPUSCULAR HGB CONC 34.5 g/dL (33.0-35.0); MEAN CORPUSCULAR VOLUME 90.5 fL (80.0-100.0); MEAN PLATELET VOLUME 8.7 fL (7.4-11.0); MONOCYTES # (AUTO) 1.8 x10^3/uL (0.3-0.8); MONOCYTES % (AUTO) 15.2 % (0.0-13.0); NEUTROPHILS % (AUTO) 69.1 % (42.0-75.0); PLATELET COUNT 245 X10^3/uL (150.0-450.0); RED BLOOD COUNT 3.27 X10^6/uL (3.5-5.4); RED CELL DISTRIBUTION WIDTH 12.8 % (11.6-16.5); WHITE BLOOD COUNT 11.5 X10^3/uL (3.6-10.0)
[2017-01-04] MEDS: NS 1000 ML 1,000 ML IV SCH ×2 (06:24→15:00)
[2017-01-04] MEDS ORDERED: ZESTRIL TAB 20 MG ONE (09:11)
[2017-01-04] MEDS: FOLIC ACID TAB 1 MG PO SCH (09:15)
[2017-01-04] MEDS: NORVASC TAB 5 MG PO SCH (09:15)
[2017-01-04] MEDS: SYNTHROID 100 mcg TAB PO SCH (09:15)
[2017-01-04] MEDS: ZESTRIL TAB 20 MG PO SCH (09:15)
[2017-01-04] MEDS: MILK OF MAGNESIA PO SCH ×3 (09:16→20:13)
[2017-01-04] MEDS ORDERED: PERCOCET TAB 5/325 MG PO PRN (17:17)
[2017-01-04] MEDS: COLACE CAP 100 MG PO SCH ×2 (20:11→20:13)
[2017-01-04] MEDS: ZyrTEC TAB 10 MG PO SCH (20:13)
[2017-01-04] MEDS: CLEOCIN PO SCH (20:13)
[2017-01-04] MEDS: ZOCOR TAB 40 MG PO SCH (20:13)
--- NOTE | 2017-01-04 21:52 | PCM.PROG ---
Progress Note - Progress Note for Day of Date: 01/04/17 - Subjective Subjective: is POD 2 today. she is doing well. no complications. her post op xr look anatomincal. she is in shoulder immobilizer. she can be discrged home. she needs to be in shoulder imobilizer as advised. all iv medications can be discontinued. she can be placed on PO meds. she needs to follo up in my office thursday in [place]. - Past Medical Family Social History Past Med/Fam/Surg Hx: No changes since H&P Allergies: Allergies penicillin G Allergy (Verified 12/30/16 16:04) - Review of Systems ROS: No change since H&P - Vital Signs and I&O's Vital Signs: Temperature 98.4 F Pulse Rate [Left Brachial] 95 Pulse Rate 115 Respiratory Rate 20 Blood Pressure [Left Arm] 129/60 Blood Pressure 138/65 O2 Sat by Pulse Oximetry 97 Intake and Output: Intake & Output 01/02/17 01/03/17 01/04/17 01/05/17 11:59 11:59 11:59 11:59 Intake Total 3794 784 1275 1080 Output Total 2200 Balance 1371 -1520 1010 1080 - Physical Exam Oriented: Normal Eyes: Normal Ear: Normal Nose: Normal Throat: Normal Respiratory: Normal Cardiovascular: Normal : Normal Auscultation: Bowel Sounds: Normal Tenderness: Normal. negative: Rebound, Guarding, Rigidity Skin: Normal, Tender (RIGHT SHOULDER ), Bruising Musculoskeletal: Right, Shoulder, Tender, Instability Psychiatric: Normal Mood Description: Calm Affect: Normal Speech Pattern: Clear, Appropriate - Laboratory and Diagnostics Result Diagrams: 01/04/17 03:50 01/04/17 03:50 Labs: Laboratory WBC 11.5 X10^3/uL (3.6-10.0) H 01/04/17 03:50 RBC 3.27 X10^6/uL (3.5-5.4) L 01/04/17 03:50 Hgb 10.2 g/dL (12.0-16.0) L 01/04/17 03:50 Hct 29.6 % (36.0-47.0) L 01/04/17 03:50 MCV 90.5 fL (80.0-100.0) 01/04/17 03:50 MCH 31.2 pg (27.0-34.0) 01/04/17 03:50 MCHC 34.5 g/dL (33.0-35.0) 01/04/17 03:50 RDW 12.8 % (11.6-16.5) 01/04/17 03:50 Plt Count 245 X10^3/uL (150.0-450.0) 01/04/17 03:50 MPV 8.7 fL (7.4-11.0) 01/04/17 03:50 Neut % 69.1 % (42.0-75.0) 01/04/17 03:50 Lymph % 14.4 % (21.0-51.0) L 01/04/17 03:50 [place] % 15.2 % (0.0-13.0) H 01/04/17 03:50 Eos % 0.6 % (0.9-2.9) L 01/04/17 03:50 Baso % 0.7 % (0.2-1.0) 01/04/17 03:50 Neut # 8.0 x10^3/uL (2.2-4.8) H 01/04/17 03:50 Lymph # 1.7 X10^3/uL (1.3-2.9) 01/04/17 03:50 [place] # 1.8 x10^3/uL (0.3-0.8) H 01/04/17 03:50 Eos # 0.1 x10^3/uL (0.0-0.2) 01/04/17 03:50 Baso # 0.1 X10^3/uL (0.0-0.1) 01/04/17 03:50 Absolute Nucleated RBC 0.1 /100WBC 01/04/17 03:50 Sodium 138 mmol/L (136-145) 01/04/17 03:50 Corrected Sodium 139 mmol/L (136-145) 01/04/17 03:50 Potassium 3.9 mmol/L (3.5-5.1) 01/04/17 03:50 Chloride 107 mmol/L (98-107) 01/04/17 03:50 Carbon Dioxide 25.1 mmol/L (21-32) 01/04/17 03:50 BUN 15 mg/dL (7-18) 01/04/17 03:50 Creatinine 0.72 mg/dL (0.55-1.02) 01/04/17 03:50 Est GFR (MDRD) Af Amer > 60 (>60) 01/04/17 03:50 Est GFR (MDRD) Non-Af > 60 (>60) 01/04/17 03:50 Glucose 138 mg/dL (65-99) H 01/04/17 03:50 Calcium 8.9 mg/dL (8.5-10.1) 01/04/17 03:50 Corrected Calcium 10.2 mg/dL (8.5-10.1) H 01/04/17 03:50 Total Bilirubin 0.60 mg/dL (0.2-1.0) 01/04/17 03:50 AST 28 Units/L (15-37) 01/04/17 03:50 ALT 23 Units/L (12-78) 01/04/17 03:50 Alkaline Phosphatase 28 Units/L (46-116) L 01/04/17 03:50 Total Protein 5.7 g/dL (6.4-8.2) L 01/04/17 03:50 Albumin 2.4 g/dL (3.4-5.0) L 01/04/17 03:50 Globulin 3.3 g/dL (2.5-4.5) 01/04/17 03:50 Albumin/Globulin Ratio 0.7 Ratio (1.1-2.1) L 01/04/17 03:50 - Plan (1) Closed fracture of right proximal humerus Status: Acute Qualifiers: Encounter type: subsequent encounter Fracture alignment: displaced Plan: continue shoulder immobilizer. fu as adviseed. take medications aas advised
[2017-01-05 04:27] LABS: BASOPHILS # (AUTO) 0.1 X10^3/uL (0.0-0.1); BASOPHILS % (AUTO) 0.9 % (0.2-1.0); EOSINOPHILS # (AUTO) 0.2 x10^3/uL (0.0-0.2); HEMOGLOBIN 9.8 g/dL (12.0-16.0); LYMPHOCYTES # (AUTO) 2.2 X10^3/uL (1.3-2.9); LYMPHOCYTES % (AUTO) 22.1 % (21.0-51.0); MEAN CORPUSCULAR HEMOGLOBIN 31.4 pg (27.0-34.0); MEAN CORPUSCULAR VOLUME 89.8 fL (80.0-100.0); MEAN PLATELET VOLUME 8.2 fL (7.4-11.0); MONOCYTES # (AUTO) 1.4 x10^3/uL (0.3-0.8); MONOCYTES % (AUTO) 13.6 % (0.0-13.0); NEUTROPHILS # (AUTO) 6.2 x10^3/uL (2.2-4.8); NEUTROPHILS % (AUTO) 61.4 % (42.0-75.0); PLATELET COUNT 249 X10^3/uL (150.0-450.0); RED BLOOD COUNT 3.12 X10^6/uL (3.5-5.4); RED CELL DISTRIBUTION WIDTH 12.8 % (11.6-16.5)
[2017-01-05 04:31] LABS: ALANINE AMINOTRANSFERASE 24 Units/L (12-78); ALBUMIN 2.3 g/dL (3.4-5.0); ALKALINE PHOSPHATASE 26 Units/L (46-116); ASPARTATE AMINO TRANSFERASE 25 Units/L (15-37); BLOOD UREA NITROGEN 16 mg/dL (7-18); CALCIUM 8.8 mg/dL (8.5-10.1); CARBON DIOXIDE 26.4 mmol/L (21-32); CHLORIDE 110 mmol/L (98-107); COR CA(FOR HYPOALB) 10.2 mg/dL (8.5-10.1); CREATININE 0.73 mg/dL (0.55-1.02); SODIUM 142 mmol/L (136-145); TOTAL PROTEIN 5.7 g/dL (6.4-8.2); eGFR BLACK RACES > 60 (>60); eGFR NON BLACK RACES > 60 (>60)
--- NOTE | 2017-01-05 06:51 | RAD ---
HISTORY: Postop right humeral fracture Study: Right shoulder AP, Y-view Comparison: December 30, 2016 Findings: The clavicle, scapula, AC joint, glenohumeral joint, and right upper ribs are intact. The patient is status post open reduction internal fixation of a humeral neck fracture with a plate and multiple scr ews. Position alignment is nearly anatomic. IMPRESSION: Status post open reduction, internal fixation right proximal humeral fracture Reported By:
[2017-01-05] MEDS ORDERED: ZESTRIL TAB 20 MG ONE (08:39)
[2017-01-05] MEDS: NORVASC TAB 5 MG PO SCH (09:25)
[2017-01-05] MEDS: FOLIC ACID TAB 1 MG PO SCH (09:25)
[2017-01-05] MEDS: CLEOCIN PO SCH (09:25)
[2017-01-05] MEDS: MILK OF MAGNESIA PO SCH (09:26)
[2017-01-05] MEDS: SYNTHROID 100 mcg TAB PO SCH (09:26)
[2017-01-05] MEDS: ZESTRIL TAB 20 MG PO SCH (09:26)
[2017-01-05 10:56] VITALS: BP 145/65
--- NOTE | 2017-01-05 23:40 | PCM.PROG ---
Progress Note - Progress Note for Day of Date: 01/04/17 - Subjective Subjective: IS STATUS POST ORIF OF THE RIGHT HUMERUS. SHE IS ALERT AND ORIENTED, SITTING ON SIDE OF BED ON MORNING ROUNDS. PATIENTS FAMILY MEMBER IS AT BEDSIDE. PATIENT HAS NO COMPLAINTS ON MORNING ROUNDS. RIGHT ARM IS NOTED IN SLING AT THIS TIME. ON EXAMINATION, LUNGS ARE NOTED CLEAR TO AUSCULTATION. VITAL SIGNS THIS MORNING ARE 99.4-97-18-96%-133/77. CBC, CMP, AND RIGHT SHOULDER XRAY WERE OBTAINED. ABNORMAL LAB VALUES INCLUDE THE FOLLOWING: WBC 11.5, RBC 3.27, HGB 102, HCT 29.6, GLUCOSE 138, CALCIUM 10.2, ALK PHOS 28, TOTAL PROTEIN 5.7, ALBUMIN 2.4. SHOULDER XRAY REPORTED STATUS POST OPEN REDUCTION, INTERNAL FIXATION RIGHT PROXIMAL HUMERAL FRACTURE. FOLLOWED UP WITH PATIENT TODAY. HE RELEASED PATIENT FOR DISCHARGE SOON CASE MANAGEMENT IS ABLE TO ARRANGE HOME HEALTH AND SUPPLIES AT HOME. WE WILL DISCUSS WITH CASE MANAGEMENT WHEN THEY RETURN TOMORROW. WE WILL CONTINUE WITH CURRENT PLAN OF CARE, RECHECK CBC AND CMP IN THE MORNING, AND CONTINUE TO MONITOR PATIENT. - Past Medical Family Social History Past Med/Fam/Surg Hx: No changes since H&P Allergies: Allergies penicillin G Allergy (Verified 12/30/16 16:04) - Review of Systems ROS: No change since H&P - Vital Signs and I&O's Vital Signs: Temperature 98.9 F Pulse Rate [Left Brachial] 78 Pulse Rate 86 Respiratory Rate 18 Blood Pressure [Left Arm] 145/65 Blood Pressure 138/65 O2 Sat by Pulse Oximetry 97 Intake and Output: Intake & Output 01/03/17 01/04/17 01/05/17 01/06/17 11:59 11:59 11:59 11:59 Intake Total 680 1010 1470 Output Total 2200 Balance -1520 1010 1470 - Physical Exam Oriented: Normal Eyes: Normal Ear: Normal Nose: Normal Throat: Normal Respiratory: Normal Cardiovascular: Normal : Normal Auscultation: Bowel Sounds: Normal Palpation: Normal Tenderness: Normal. negative: Rebound, Guarding, Rigidity Skin: Normal, Tender (RIGHT SHOULDER ), Bruising Musculoskeletal: Right, Shoulder, Tender, Instability Psychiatric: Normal Mood Description: Calm Affect: Normal Speech Pattern: Clear, Appropriate - Laboratory and Diagnostics Result Diagrams: 01/05/17 03:40 01/05/17 03:40 Labs: Laboratory WBC 10.0 X10^3/uL (3.6-10.0) 01/05/17 03:40 RBC 3.12 X10^6/uL (3.5-5.4) L 01/05/17 03:40 Hgb 9.8 g/dL (12.0-16.0) L 01/05/17 03:40 Hct 28.0 % (36.0-47.0) L 01/05/17 03:40 MCV 89.8 fL (80.0-100.0) 01/05/17 03:40 MCH 31.4 pg (27.0-34.0) 01/05/17 03:40 MCHC 35.0 g/dL (33.0-35.0) 01/05/17 03:40 RDW 12.8 % (11.6-16.5) 01/05/17 03:40 Plt Count 249 X10^3/uL (150.0-450.0) 01/05/17 03:40 MPV 8.2 fL (7.4-11.0) 01/05/17 03:40 Neut % 61.4 % (42.0-75.0) 01/05/17 03:40 Lymph % 22.1 % (21.0-51.0) 01/05/17 03:40 [place] % 13.6 % (0.0-13.0) H 01/05/17 03:40 Eos % 2.0 % (0.9-2.9) 01/05/17 03:40 Baso % 0.9 % (0.2-1.0) 01/05/17 03:40 Neut # 6.2 x10^3/uL (2.2-4.8) H 01/05/17 03:40 Lymph # 2.2 X10^3/uL (1.3-2.9) 01/05/17 03:40 [place] # 1.4 x10^3/uL (0.3-0.8) H 01/05/17 03:40 Eos # 0.2 x10^3/uL (0.0-0.2) 01/05/17 03:40 Baso # 0.1 X10^3/uL (0.0-0.1) 01/05/17 03:40 Absolute Nucleated RBC 0.0 /100WBC 01/05/17 03:40 Sodium 142 mmol/L (136-145) 01/05/17 03:40 Corrected Sodium TNP 01/05/17 03:40 Potassium 3.8 mmol/L (3.5-5.1) 01/05/17 03:40 Chloride 110 mmol/L (98-107) H 01/05/17 03:40 Carbon Dioxide 26.4 mmol/L (21-32) 01/05/17 03:40 BUN 16 mg/dL (7-18) 01/05/17 03:40 Creatinine 0.73 mg/dL (0.55-1.02) 01/05/17 03:40 Est GFR (MDRD) Af Amer > 60 (>60) 01/05/17 03:40 Est GFR (MDRD) Non-Af > 60 (>60) 01/05/17 03:40 Glucose 106 mg/dL (65-99) H 01/05/17 03:40 Calcium 8.8 mg/dL (8.5-10.1) 01/05/17 03:40 Corrected Calcium 10.2 mg/dL (8.5-10.1) H 01/05/17 03:40 Total Bilirubin 0.60 mg/dL (0.2-1.0) 01/05/17 03:40 AST 25 Units/L (15-37) 01/05/17 03:40 ALT 24 Units/L (12-78) 01/05/17 03:40 Alkaline Phosphatase 26 Units/L (46-116) L 01/05/17 03:40 Total Protein 5.7 g/dL (6.4-8.2) L 01/05/17 03:40 Albumin 2.3 g/dL (3.4-5.0) L 01/05/17 03:40 Globulin 3.4 g/dL (2.5-4.5) 01/05/17 03:40 Albumin/Globulin Ratio 0.7 Ratio (1.1-2.1) L 01/05/17 03:40 - Plan (1) Fracture of right shoulder Status: Acute Qualifiers: Encounter type: initial encounter Fracture type: closed Qualified Code(s) : S42.91XA - Fracture of right shoulder girdle, part unspecified, initial encounter for closed fracture Plan: MORPHINE 4MG IV Q6H PRN PAIN, ORTHO CONSULT, CONTINUE TO MONITOR
--- NOTE | 2017-01-05 23:40 | PCM.PROG ---
Progress Note - Progress Note for Day of Date: 01/03/17 - Subjective Subjective: IS STATUS POST ORIF OF THE RIGHT HUMERUS. SHE IS ALERT AND ORIENTED, LYING IN BED ON MORNING ROUNDS. PATIENTS FAMILY MEMBER IS AT BEDSIDE. SHE IS NOTED WITH COMPLAINTS OF RIGHT SHOULDER PAIN. VITAL SIGNS THIS MORNING ARE 98.7-91-18-93%-128/69. CBC AND CMP WERE OBTAINED. ABNORMAL LAB VALUES INCLUDE THE FOLLOWING: WBC 12.4, RBC 3.43, HGB 11.0, HCT 31.1, GLUCOSE 149, ALK PHOS 33, TOTAL PROTEIN 6.0, ALBUMIN 2.7. WE DISCUSSED DISCHARGE PLANS WITH PATIENT. PATIENT REPORTS THAT SHE HAS GOOD FAMILY SUPPORT AT HOME AND FEELS LIKE SHE WOULD BE SAFE IF DISCHARGED HOME. WE DISCUSSED WITH PATIENT THE NEED FOR PHYSICAL THERAPY THROUGHOUT THE WEEK. PATIENT VERBALIZED UNDERSTANDING. WE WILL DISCUSS DISCHARGE PLANS WITH AND REASSESS PATIENT IN THE MORNING. WE PLAN TO RECHECK CBC AND CMP IN THE AM. - Past Medical Family Social History Past Med/Fam/Surg Hx: No changes since H&P Allergies: Allergies penicillin G Allergy (Verified 12/30/16 16:04) - Review of Systems ROS: No change since H&P - Vital Signs and I&O's Vital Signs: Temperature 98.9 F Pulse Rate [Left Brachial] 78 Pulse Rate 86 Respiratory Rate 18 Blood Pressure [Left Arm] 145/65 Blood Pressure 138/65 O2 Sat by Pulse Oximetry 97 Intake and Output: Intake & Output 01/03/17 01/04/17 01/05/17 01/06/17 11:59 11:59 11:59 11:59 Intake Total 680 1010 1470 Output Total 2200 Balance -1520 1010 1470 - Physical Exam Oriented: Normal Eyes: Normal Ear: Normal Nose: Normal Throat: Normal Respiratory: Normal Cardiovascular: Normal : Normal Auscultation: Bowel Sounds: Normal Palpation: Normal Tenderness: Normal. negative: Rebound, Guarding, Rigidity Skin: Normal, Tender (RIGHT SHOULDER ), Bruising Musculoskeletal: Right, Shoulder, Tender, Instability Psychiatric: Normal Mood Description: Calm Affect: Normal Speech Pattern: Clear, Appropriate - Laboratory and Diagnostics Result Diagrams: 01/05/17 03:40 01/05/17 03:40 Labs: Laboratory WBC 10.0 X10^3/uL (3.6-10.0) 01/05/17 03:40 RBC 3.12 X10^6/uL (3.5-5.4) L 01/05/17 03:40 Hgb 9.8 g/dL (12.0-16.0) L 01/05/17 03:40 Hct 28.0 % (36.0-47.0) L 01/05/17 03:40 MCV 89.8 fL (80.0-100.0) 01/05/17 03:40 MCH 31.4 pg (27.0-34.0) 01/05/17 03:40 MCHC 35.0 g/dL (33.0-35.0) 01/05/17 03:40 RDW 12.8 % (11.6-16.5) 01/05/17 03:40 Plt Count 249 X10^3/uL (150.0-450.0) 01/05/17 03:40 MPV 8.2 fL (7.4-11.0) 01/05/17 03:40 Neut % 61.4 % (42.0-75.0) 01/05/17 03:40 Lymph % 22.1 % (21.0-51.0) 01/05/17 03:40 [place] % 13.6 % (0.0-13.0) H 01/05/17 03:40 Eos % 2.0 % (0.9-2.9) 01/05/17 03:40 Baso % 0.9 % (0.2-1.0) 01/05/17 03:40 Neut # 6.2 x10^3/uL (2.2-4.8) H 01/05/17 03:40 Lymph # 2.2 X10^3/uL (1.3-2.9) 01/05/17 03:40 [place] # 1.4 x10^3/uL (0.3-0.8) H 01/05/17 03:40 Eos # 0.2 x10^3/uL (0.0-0.2) 01/05/17 03:40 Baso # 0.1 X10^3/uL (0.0-0.1) 01/05/17 03:40 Absolute Nucleated RBC 0.0 /100WBC 01/05/17 03:40 Sodium 142 mmol/L (136-145) 01/05/17 03:40 Corrected Sodium TNP 01/05/17 03:40 Potassium 3.8 mmol/L (3.5-5.1) 01/05/17 03:40 Chloride 110 mmol/L (98-107) H 01/05/17 03:40 Carbon Dioxide 26.4 mmol/L (21-32) 01/05/17 03:40 BUN 16 mg/dL (7-18) 01/05/17 03:40 Creatinine 0.73 mg/dL (0.55-1.02) 01/05/17 03:40 Est GFR (MDRD) Af Amer > 60 (>60) 01/05/17 03:40 Est GFR (MDRD) Non-Af > 60 (>60) 01/05/17 03:40 Glucose 106 mg/dL (65-99) H 01/05/17 03:40 Calcium 8.8 mg/dL (8.5-10.1) 01/05/17 03:40 Corrected Calcium 10.2 mg/dL (8.5-10.1) H 01/05/17 03:40 Total Bilirubin 0.60 mg/dL (0.2-1.0) 01/05/17 03:40 AST 25 Units/L (15-37) 01/05/17 03:40 ALT 24 Units/L (12-78) 01/05/17 03:40 Alkaline Phosphatase 26 Units/L (46-116) L 01/05/17 03:40 Total Protein 5.7 g/dL (6.4-8.2) L 01/05/17 03:40 Albumin 2.3 g/dL (3.4-5.0) L 01/05/17 03:40 Globulin 3.4 g/dL (2.5-4.5) 01/05/17 03:40 Albumin/Globulin Ratio 0.7 Ratio (1.1-2.1) L 01/05/17 03:40 - Plan (1) Fracture of right shoulder Status: Acute Qualifiers: Encounter type: initial encounter Fracture type: closed Qualified Code(s) : S42.91XA - Fracture of right shoulder girdle, part unspecified, initial encounter for closed fracture Plan: MORPHINE 4MG IV Q6H PRN PAIN, ORTHO CONSULT, CONTINUE TO MONITOR
== END 2017-01-05 11:30 | disposition home health service (06) | DRG 563 ==
LOC: ER 15:58 → MED/SURG 19:00
PROVIDERS: ADMIT Internal Medicine; ATTEND Internal Medicine
PROC: 0PSC04Z Reposition Right Humeral Head with Internal Fixation Device, Open Approach (ICD-10-PCS; principal; 2017-01-05)
DX: S42.91XA Fracture of right shoulder girdle, part unspecified, initial encounter for closed fracture (principal); W18.39XA Other fall on same level, initial encounter; Y92.007 Garden or yard of unspecified non-institutional (private) residence as the place of occurrence of the external cause; R52 Pain, unspecified; E78.2 Mixed hyperlipidemia; I10 Essential (primary) hypertension; M13.89 Other specified arthritis, multiple sites; M25.511 Pain in right shoulder
CPT/HCPCS: 36415; 64418; 71010; 73030; 73060; 76000; 80053; 85025; 93005; 94760; 94762; 96365; 96374; 96375; 99100; 99284; A4216; A4222; S0020; J0330; J2001; J2250; J2270; J2405; J2710; J3010; J3370; J3490; J7120; S0077

== ENCOUNTER → 2017-01-14 | Outpatient (CLI) | payer OTHER ==
[2017-01-05 10:56] VITALS: BP 145/65
--- NOTE | 2017-01-14 16:17 | RAD ---
HISTORY: Fracture repair Study: 2 views of the right humerus. Comparison: 01/02/2017 Findings: Redemonstration of ORIF proximal right humerus fracture. Fracture fragments in near anatomic alignmen t. No evidence of hardware malfunction. The humeral head appears unremarkable. IMPRESSION: 1. Expected postoperative appearance of the right humerus. Reported By:
== END ==
LOC: RAD 11:54
PROVIDERS: ATTEND Orthopaedic Surgery
DX: S42.291D Other displaced fracture of upper end of right humerus, subsequent encounter for fracture with routine healing (principal); X58.XXXD Exposure to other specified factors, subsequent encounter
CPT/HCPCS: 73060

== ENCOUNTER → 2017-02-11 | Outpatient (CLI) | payer OTHER ==
--- NOTE | 2017-02-11 14:58 | RAD ---
Examination: X-rays of the right humerus. Clinical history: Closed three-part fracture, follow-up. Technique: AP and lateral views of the right humerus were obtained. A total of 4 images reviewed. Comparison: 01/14/2017. Findings: A nondisplaced, comminuted fracture of the proximal humerus, internally fixated with a laterally plac ed metallic plate and multiple screws is stable in position, with minimal callus formation and perios teal reaction noted at the fracture site. No additional bony or soft tissue abnormality is noted. Impression: 1. Fracture of the proximal right humerus, as described above. Reported By:
== END ==
LOC: RAD 14:17
PROVIDERS: ATTEND Orthopaedic Surgery
DX: S42.291D Other displaced fracture of upper end of right humerus, subsequent encounter for fracture with routine healing (principal); X58.XXXD Exposure to other specified factors, subsequent encounter
CPT/HCPCS: 73060

== ENCOUNTER → 2017-03-25 | Outpatient (CLI) | payer OTHER ==
--- NOTE | 2017-03-25 10:29 | RAD ---
Examination: Right humerus, two views History: Follow-up fracture Comparison reference 02/11/2017 Findings: There is no change in position of the surgical fixation hardware at the proximal humerus. T he fracture line remains well visualized; bony union is not complete. Slight additional callus is sug gested. Impression: Stable appearance of of internally fixed fracture surgical neck right humerus. Reported By:
== END ==
LOC: RAD 10:03
PROVIDERS: ATTEND Orthopaedic Surgery
DX: S42.291D Other displaced fracture of upper end of right humerus, subsequent encounter for fracture with routine healing (principal); X58.XXXD Exposure to other specified factors, subsequent encounter
CPT/HCPCS: 73060

== ENCOUNTER → 2017-06-22 | Outpatient (CLI) | payer MEDICAID, OTHER ==
--- NOTE | 2017-06-23 07:22 | RAD ---
HISTORY: Follow-up right humeral fracture Study: Right shoulder internal, external, Y-view Comparison: 01/04/2017 Findings: The clavicle, AC joint, scapula, right upper ribs, and glenohumeral joint are intact. The patient is status post open reduction internal fixation of the humeral neck fracture with a plate and 8 screws. Position and alignment is anatomic. The fracture line is no longer identified. IMPRESSION: Status post open reduction, internal fixation of a right proximal humeral fracture Reported By:
== END ==
LOC: RAD 16:00
PROVIDERS: ATTEND Orthopaedic Surgery
DX: S42.291D Other displaced fracture of upper end of right humerus, subsequent encounter for fracture with routine healing (principal); X58.XXXD Exposure to other specified factors, subsequent encounter; Z98.890 Other specified postprocedural states
CPT/HCPCS: 73030

== ENCOUNTER 2018-09-13 16:54 | Observation (INO) ==
[2018-09-13 17:16] VITALS: BMI 30.7
--- NOTE | 2018-09-13 17:26 | DR.DIZZY ---
HPI Time seen Time Seen by Provider: 09/13/18 17:21 HPI Comment HPI Comment: Patient is weaker since last visit. She continues to have left sided weakness Complaint Chief Complaint Doctor Comments: No better since Thursday Chief Complaint:: FAMILY STATES THAT PT WAS HERE THURSDAY AND SHE IS NO BETTER. SHE IS STILL WEAK AND CONTINUES TO HAVE LEFT SIDED WEAKNESS WHICH FAMILY STATES IS WORSE Source History Provided: Patient Mode of Arrival Mode of Arrival: Wheelchair Timing Onset of Chief Complaint: 09/10/18 Context Stroke Symptoms: None PMH PMH Past Medical History: Yes Past Medical History: Arthritis, Dyslipidemia and Hypertension Past Surgical History: Yes Surgical History: Cholecystectomy Family History History of Family Medical Conditions: Yes Family Medical History: Cancer and Hypertension Social History Does patient currently use any type of tobacco product: No Have you used tobacco products in the last 12 months: No Type of Tobacco Use: None Does any household member use tobacco: No Alcohol Use: None Do you use any recreational Drugs:: No Lives With: Family Lives Where: Home infectious screening In the last 2 months have you had wt loss of >10#?: NO Have you had fever, night sweats or hemotysis?: No Have you traveled outside the country in the last 6 months?: No Isolation: Standard ROS Review of Systems Constitutional: No Symptoms Reported Eyes: No Symptoms Reported ENTM: No Symptoms Reported Respiratoy: No Symptoms Reported Cardiovascular: No Symptoms Reported Gastrointestinal/Abdominal: No Symptoms Reported Genitourinary: No Symptoms Reported Musculoskeletal: No Symptoms Reported Integumentary: No Symptoms Reported Endocrine: No Symptoms Reported All Other Systems: Reviewed and Negative PE Vital Signs Vitals: Temperature 98.8 F Pulse Rate [Apical] 78 Pulse Rate 81 Respiratory Rate 20 Blood Pressure [Right Arm] 161/68 Blood Pressure [Left Arm] 144/65 Blood Pressure 139/64 O2 Sat by Pulse Oximetry 96 General Limitations: Language Barrier General Appearance: Alert and In No Apparent Distress Head Head Exam: Normal Inspection, Atraumatic and Normocephalic Eyes Eye exam: Normal Appearance, PERRL and EOMI Pupils: Regular, Round: Bilateral Sclera/Conjunctival: Normal Inspection: Bilateral Anterior Chamber: Normal Inspection: Bilateral ENT ENT Exam: Normal Exam, Normal Oropharynx, Normal External Ear Exam, Mucous Membranes Moist, TM's Normal Bilaterally and Other (jaw is deviated to the right just beyond midline) Chest Chest Inspection: Normal Inspection and Symmetric Chest Wall Rise Respiratory Respiratory Exam: Normal Lung Sounds Bilat Respiratory Exam: Bilateral: Clear to Auscultation Cardiovascular Cardiovascular Exam: Regular Rate and Normal Rhythm Abdominal Exam Abdominal Exam: Normal Inspection, Normal Bowel Sounds and Soft Abdominal Tenderness: RUQ, RLQ and LUQ Rectal Rectal Exam: Deferred Extremeties Extremities Exam: Normal Inspection Back Back Exam: Normal Inspection and Full ROM Neurologic Neurological Exam: Alert, Oriented X3 and CN II-XII Intact Cranial Nerve Exam: EOM Function (II, III, IV, ): Normal, Facial Sensation (V): Normal and Facial Palsy (VII): Left Abnormal Psychiatric Psychiatric Exam: Normal Affect and Normal Mood Skin Skin Exam: Warm, Dry and Intact MDM Differential Diagnosis Differential Diagnosis: CVA and Dehydration ROR Labs Reviewed Laboratory Results Reviewed?: Yes Result Diagrams: 09/13/18 17:50 09/13/18 17:50 Laboratory: WBC 6.3 X10^3/uL (3.6-10.0) 09/13/18 17:50 RBC 4.24 X10^6/uL (3.5-5.4) 09/13/18 17:50 Hgb 13.3 g/dL (12.0-16.0) 09/13/18 17:50 Hct 38.8 % (36.0-47.0) 09/13/18 17:50 MCV 91.3 fL (80.0-100.0) 09/13/18 17:50 MCH 31.4 pg (27.0-34.0) 09/13/18 17:50 MCHC 34.4 g/dL (33.0-35.0) 09/13/18 17:50 RDW 13.0 % (11.6-16.5) 09/13/18 17:50 Plt Count 232 X10^3/uL (150.0-450.0) 09/13/18 17:50 MPV 7.7 fL (7.4-11.0) 09/13/18 17:50 Neut % (Auto) 57.6 % (42.0-75.0) 09/13/18 17:50 Lymph % (Auto) 24.3 % (21.0-51.0) 09/13/18 17:50 [place] % (Auto) 16.6 % (0.0-13.0) H 09/13/18 17:50 Eos % (Auto) 0.5 % (0.9-2.9) L 09/13/18 17:50 Baso % (Auto) 1.0 % (0.2-1.0) 09/13/18 17:50 Neut # (Auto) 3.6 x10^3/uL (2.2-4.8) 09/13/18 17:50 Lymph # (Auto) 1.5 X10^3/uL (1.3-2.9) 09/13/18 17:50 [place] # (Auto) 1.0 x10^3/uL (0.3-0.8) H 09/13/18 17:50 Eos # (Auto) 0.0 x10^3/uL (0.0-0.2) 09/13/18 17:50 Baso # (Auto) 0.1 X10^3/uL (0.0-0.1) 09/13/18 17:50 Absolute Nucleated RBC 0.0 /100WBC 09/13/18 17:50 Sodium 136 mmol/L (136-145) 09/13/18 17:50 Corrected Sodium 136 mmol/L (136-145) 09/13/18 17:50 Potassium 4.0 mmol/L (3.5-5.1) 09/13/18 17:50 Chloride 102 mmol/L (98-107) 09/13/18 17:50 Carbon Dioxide 26.8 mmol/L (21-32) 09/13/18 17:50 BUN 24 mg/dL (7-18) H 09/13/18 17:50 Creatinine 1.06 mg/dL (0.55-1.02) H 09/13/18 17:50 Est GFR (MDRD) Af Amer > 60 (>60) 09/13/18 17:50 Est GFR (MDRD) Non-Af 53 (>60) L 09/13/18 17:50 Glucose 113 mg/dL (65-99) H 09/13/18 17:50 Calcium 10.4 mg/dL (8.5-10.1) H 09/13/18 17:50 Corrected Calcium TNP 09/13/18 17:50 Total Bilirubin 0.50 mg/dL (0.2-1.0) 09/13/18 17:50 AST 21 Units/L (15-37) 09/13/18 17:50 ALT 16 Units/L (12-78) 09/13/18 17:50 Alkaline Phosphatase 39 Units/L (46-116) L 09/13/18 17:50 Creatine Kinase 106 Units/L (26-192) 09/14/18 00:40 CK-MB (CK-2) 1.4 ng/mL (0-4.0) 09/14/18 00:40 CK/CKMB % Calc 1.3 % (<4) 09/14/18 00:40 Troponin I 0.02 ng/mL (0-1.5) 09/14/18 00:40 Total Protein 6.9 g/dL (6.4-8.2) 09/13/18 17:50 Albumin 3.5 g/dL (3.4-5.0) 09/13/18 17:50 Globulin 3.4 g/dL (2.5-4.5) 09/13/18 17:50 Albumin/Globulin Ratio 1.0 Ratio (1.1-2.1) L 09/13/18 17:50 Specimen Type Clean catch urine 09/14/18 00:55 Urine Color Yellow (YELLOW) 09/14/18 00:55 Urine Appearance Clear (CLEAR) 09/14/18 00:55 Urine pH 6.0 (5.0 - 8.0) 09/14/18 00:55 Ur Specific [place] 1.025 (1.000-1.030) 09/14/18 00:55 Urine Protein 1+ (NEGATIVE) 09/14/18 00:55 Urine Glucose (UA) Negative (NEGATIVE) 09/14/18 00:55 Urine Ketones 1+ (NEGATIVE) 09/14/18 00:55 Urine Occult Blood Negative (NEGATIVE) 09/14/18 00:55 Urine Nitrite Negative (NEGATIVE) 09/14/18 00:55 Urine Bilirubin Negative (NEGATIVE) 09/14/18 00:55 Urine Urobilinogen Normal (NORMAL) 09/14/18 00:55 Ur Leukocyte Esterase 1+ (NEGATIVE) 09/14/18 00:55 Urine RBC 0-2 /HPF (NONE SEEN) 09/14/18 00:55 Urine WBC 3-5 /HPF (NONE SEEN) 09/14/18 00:55 Ur Squamous Epith Cells Rare /HPF (NEGATIVE) 09/14/18 00:55 Urine Bacteria Trace /HPF (NEGATIVE) 09/14/18 00:55 Urine Mucus Moderate /HPF (NEGATIVE) 09/14/18 00:55 Ur Culture Indicated? Yes/culture set up 09/14/18 00:55 Other Results Comments: CT Brain w/o: No acute intracranial process can be identified. There has been no change compared to prior (09/13/18). 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 Age- appropriate atrophic changes are seen. XRAY XRAY Interpreted by: Radiologist Diagnosis Discharge Problem: Weakness of right side of body
[2018-09-13 17:57] LABS: BASOPHILS # (AUTO) 0.1 X10^3/uL (0.0-0.1); EOSINOPHILS % (AUTO) 0.5 % (0.9-2.9); HEMATOCRIT 38.8 % (36.0-47.0); HEMOGLOBIN 13.3 g/dL (12.0-16.0); LYMPHOCYTES # (AUTO) 1.5 X10^3/uL (1.3-2.9); LYMPHOCYTES % (AUTO) 24.3 % (21.0-51.0); MEAN CORPUSCULAR HEMOGLOBIN 31.4 pg (27.0-34.0); MEAN CORPUSCULAR HGB CONC 34.4 g/dL (33.0-35.0); MEAN CORPUSCULAR VOLUME 91.3 fL (80.0-100.0); MEAN PLATELET VOLUME 7.7 fL (7.4-11.0); MONOCYTES % (AUTO) 16.6 % (0.0-13.0); NEUTROPHILS # (AUTO) 3.6 x10^3/uL (2.2-4.8); NEUTROPHILS % (AUTO) 57.6 % (42.0-75.0); PLATELET COUNT 232 X10^3/uL (150.0-450.0); RED BLOOD COUNT 4.24 X10^6/uL (3.5-5.4); WHITE BLOOD COUNT 6.3 X10^3/uL (3.6-10.0)
[2018-09-13 18:09] LABS: ALANINE AMINOTRANSFERASE 16 Units/L (12-78); ALBUMIN 3.5 g/dL (3.4-5.0); ALKALINE PHOSPHATASE 39 Units/L (46-116); ASPARTATE AMINO TRANSFERASE 21 Units/L (15-37); BLOOD UREA NITROGEN 24 mg/dL (7-18); CALCIUM 10.4 mg/dL (8.5-10.1); CARBON DIOXIDE 26.8 mmol/L (21-32); CHLORIDE 102 mmol/L (98-107); COR NA(FOR HYPERGLY) 136 mmol/L (136-145); CREATININE 1.06 mg/dL (0.55-1.02); SODIUM 136 mmol/L (136-145); TOTAL PROTEIN 6.9 g/dL (6.4-8.2); eGFR NON BLACK RACES 53 (>60)
--- NOTE | 2018-09-13 18:20 | CT ---
HISTORY: Weakness Study: CT brain without contrast Comparison: 09/10/2018 Technique: Multiple axial images of the brain were obtained from the skull base to the vertex without administration of IV contrast.Dose reduction techniques including Automated Exposure Control (AEC) and adjustment of mA and kV were utlized. Findings: No acute intraparenchymal hemorrhage or mass can be identified. No extra-axial fluid collections are seen. No alteration in the attenuation of the brain parenchyma can be identified to suggest acute or subacute ischemic change. The ventricular system is symmetric and nondilated. There is chronic periventricular white matter disease observed and age-appropriate generalized atrophy. IMPRESSION: 1. No acute intracranial process can be identified. There has been no change compared to prior. 2. 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 3. Age-appropriate atrophic changes are seen. Reported By:
--- NOTE | 2018-09-13 19:08 | RAD ---
HISTORY: Weakness Study: Single-view chest Comparison: 09/10/2018 Findings: The trachea is midline. 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 The lungs are clear without focal infiltrate or effusion. The bony thorax is unremarkable. IMPRESSION: 1. No acute cardiopulmonary disease. Reported By:
[2018-09-13 19:17] LABS: CKMB % 1.1 % (<4); CREATINE KINASE MB 1.2 ng/mL (0-4.0); TROPONIN I 0.02 ng/mL (0-1.5)
[2018-09-13] MEDS: NS 1000 ML 1,000 ML IV SCH (19:25)
--- NOTE | 2018-09-13 20:46 | DR.H&P ---
H&P - History & Physical for Day of: H&P Date: 09/13/18 - Chief Complaint Chief Complaint: LEFT SIDED WEAKNESS, DIZZINESS, UNSTEADY GAIT - History of Present Illness History of Present Illness: IS A 83 YEAR OLD PATIENT OF OURS WHO PRESENTED TO THE ER WITH COMPLAINTS OF LEFT SIDED WEAKNESS, DIZZINESS, AND UNSTEADY GAIT. SYMPTOMS HAVE BEEN PRESENT FOR APPROXIMATELY ONE WEEK AND HAVE PROGRESSIVELY GOTTEN WORSE. ON ARRIVAL, VITALS WERE 98.7-81-24-96%-139/64. LABS WERE OBTAINED. ABNORMAL LAB VALUES WERE OBTAINED AND REVEALED: BUN 24, CREATININE 1.06, GLUCOSE 113, CALCIUM 10.4, ALK PHOS 39. CARRDIAC ENZYMES WITHIN NORMAL LIMITS. A BRAIN CT WAS OBTAINED AND REVEALED: No acute intracranial process can be identified. There has been no change compared to prior. 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 Age-appropriate atrophic changes are seen. CHEST XRAY REVEALED: No acute cardiopulmonary disease. A URINE CULTURE WAS SET UP FROM A PREVIOUS VISIT ON 09/10/18, HOWEVER, URINE CULTURE REVEALED CONTAMINATION. WE WILL REPEAT A URINALYSIS AND CULTURE. SHE WAS ADMITTED TO THE HOSPITAL FOR FURTHER EVALUATION AND TREATMENT OF GENERALIZED WEAKNESS, DIZZINESS, AND UNSTEADY GAIT. SHE WAS STARTED ON NORMAL SALINE AT 80ML/HR. WE WILL OBTAIN A CAROTID DIPPLER IN THE AM. OTHERWISE, WE PLAN TO FOLLOW UP WITH AM LABS AND CONTINUE TO MONITOR. 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) - Past Surgical History Surgical History: Cholecystectomy - Family History Family Medical History: Cancer, Hypertension - Social History Does patient currently use any type of tobacco product: No Have you used tobacco products in the last 12 months: No Type of Tobacco Use: None Does any household member use tobacco: No Alcohol Use: None Drug Use: None - Medications Home Medications: penicillin G Allergy (Verified 09/10/18 18:09) - Review of Systems Constitutional: Weakness Eyes: No Symptoms Reported ENT: No Symptoms Reported Respiratory: No Symptoms Reported Cardiovascular: Light Headedness Gastrointestinal: No Symptoms Reported Genitourinary: No Symptoms Reported Musculoskeletal: No Symptoms Reported Skin: No Symptoms Reported Neurological: Weakness - Physical Exam Vital Signs: Temperature 98.0 F Pulse Rate [Apical] 83 Pulse Rate 81 Respiratory Rate 20 Blood Pressure [Right Arm] 147/70 Blood Pressure [Left Arm] 144/65 Blood Pressure 139/64 O2 Sat by Pulse Oximetry 98 Oriented: Person Eyes: Normal Ear: Normal Nose: Normal Throat: Normal Respiratory: Diminished Throughout Cardiovascular: Normal : Normal Auscultation: Bowel Sounds: Normal Palpation: Normal Tenderness: Normal Skin: Normal Musculoskeletal: Normal Psychiatric: Normal Mood Description: Calm Affect: Normal Speech Pattern: Clear - Assessment/Plan (1) Generalized weakness Status: Acute (2) Dizziness Status: Acute (3) Unsteady gait Status: Acute - Allergies Allergies/Adverse Reactions: Allergies Allergy/AdvReac Type Severity Reaction Status Date / Time penicillin G Allergy Verified 09/10/18 18:09
[2018-09-14 01:05] LABS: BILIRUBIN,URINE NEGATIVE (NEGATIVE); BLOOD/HEMOGLOBIN,URINE NEGATIVE (NEGATIVE); GLUCOSE, URINE NEGATIVE (NEGATIVE); KETONES,URINE 1+ (NEGATIVE); LEUKOCYTE ESTERASE ,URINE 1+ (NEGATIVE); NITRITES,URINE NEGATIVE (NEGATIVE); PROTEIN,URINE 1+ (NEGATIVE); UROBILINOGEN,URINE NORMAL (NORMAL)
[2018-09-14 01:12] LABS: APPEARANCE,URINE CLEAR (CLEAR); COLOR,URINE YELLOW (YELLOW)
[2018-09-14 01:13] LABS: BACTERIA,URINE TRACE /HPF (NEGATIVE); MUCUS,URINE MODERATE /HPF (NEGATIVE); RBC,URINE 0-2 /HPF (NONE SEEN); SQUAMOUS EPITHELIAL CELL,UR RARE /HPF (NEGATIVE)
[2018-09-14 01:45] LABS: CKMB % 1.3 % (<4); CREATINE KINASE MB 1.4 ng/mL (0-4.0); TROPONIN I 0.02 ng/mL (0-1.5)
[2018-09-14 05:25] LABS: BASOPHILS # (AUTO) 0.1 X10^3/uL (0.0-0.1); BASOPHILS % (AUTO) 1.2 % (0.2-1.0); EOSINOPHILS % (AUTO) 0.6 % (0.9-2.9); HEMATOCRIT 37.4 % (36.0-47.0); LYMPHOCYTES # (AUTO) 1.4 X10^3/uL (1.3-2.9); LYMPHOCYTES % (AUTO) 23.5 % (21.0-51.0); MEAN CORPUSCULAR HEMOGLOBIN 32.1 pg (27.0-34.0); MEAN CORPUSCULAR HGB CONC 34.8 g/dL (33.0-35.0); MEAN CORPUSCULAR VOLUME 92.1 fL (80.0-100.0); MEAN PLATELET VOLUME 8.5 fL (7.4-11.0); MONOCYTES # (AUTO) 0.9 x10^3/uL (0.3-0.8); MONOCYTES % (AUTO) 15.6 % (0.0-13.0); NEUTROPHILS # (AUTO) 3.5 x10^3/uL (2.2-4.8); NEUTROPHILS % (AUTO) 59.1 % (42.0-75.0); PLATELET COUNT 231 X10^3/uL (150.0-450.0); RED BLOOD COUNT 4.07 X10^6/uL (3.5-5.4); RED CELL DISTRIBUTION WIDTH 12.7 % (11.6-16.5); WHITE BLOOD COUNT 5.9 X10^3/uL (3.6-10.0)
[2018-09-14 05:34] LABS: ALANINE AMINOTRANSFERASE 15 Units/L (12-78); ALBUMIN 3.1 g/dL (3.4-5.0); ALKALINE PHOSPHATASE 35 Units/L (46-116); ASPARTATE AMINO TRANSFERASE 19 Units/L (15-37); BLOOD UREA NITROGEN 22 mg/dL (7-18); CALCIUM 9.5 mg/dL (8.5-10.1); CARBON DIOXIDE 26.7 mmol/L (21-32); CHLORIDE 105 mmol/L (98-107); COR CA(FOR HYPOALB) 10.2 mg/dL (8.5-10.1); COR NA(FOR HYPERGLY) 138 mmol/L (136-145); CREATININE 0.88 mg/dL (0.55-1.02); SODIUM 138 mmol/L (136-145); TOTAL PROTEIN 6.3 g/dL (6.4-8.2); eGFR NON BLACK RACES > 60 (>60)
[2018-09-14] MEDS: NS 1000 ML 1,000 ML IV SCH ×4 (06:34→20:29)
[2018-09-14] MEDS ORDERED: PHARMACY CONSULT - DOSE _____ XX SCH ×2 (08:00→09:00)
--- NOTE | 2018-09-14 08:11 | VAS ---
History: Left facial droop and slurred speech Study: Carotid duplex ultrasound Comparison: None Findings: Images show mild to moderate calcified plaque in the right carotid bulb and very mild plaque formation in the left carotid bulb. Peak systolic velocity in the distal right common carotid artery is 90.4 centimeters/second and in the right internal carotid artery is 145.5 centimeters/second for a ratio of 1.6 Peak systolic velocity in the distal left common carotid artery is 81.6 centimeters/second and in the left internal carotid artery is 125.7 for a ratio of 1.56. There is antegrade flow in both vertebral arteries. Impression: Bilateral plaque formation in the carotid bulbs, right greater than left, but no evidence for significant stenosis. Reported By:
[2018-09-14] MEDS: SOLU-Medrol 40 MG VIAL IVP SCH ×3 (09:26→21:03)
[2018-09-14] MEDS: MILK OF MAGNESIA PO SCH (09:26)
[2018-09-14] MEDS: LOVENOX INJ 40 MG SYR SC SCH (09:26)
[2018-09-14] MEDS: ZOVIRAX PO SCH ×4 (09:26→20:06)
--- NOTE | 2018-09-14 11:08 | RAD ---
History: Constipation Study: KUB Comparison: None Findings: No significant fecal material is demonstrated in the colon. There is gaseous prominence of small bowel measuring up to 3 cm diameter. There are cholecystectomy clips. There is mild levoscoliosis of the lumbar spine with severe degenerative disc disease. Impression: Mildly ASCUS distended loops of small bowel, nonspecific. This may reflect ileus or a relatively mild distal small bowel obstruction Reported By:
--- NOTE | 2018-09-14 12:47 | MRI ---
MRI OF THE BRAIN WITHOUT IV CONTRAST CLINICAL INDICATION: Left-sided weakness TECHNIQUE: Pre-contrast T1-w, T2, and diffusion-w sequences of the brain with ADC maps. COMPARISON: None. FINDINGS: Diffuse patchy and confluent periventricular and subcortical T2/FLAIR signal with associated volume loss . There is no mass or mass-effect, or abnormal extra-axial fluid collection. Diffusion imaging shows no hyperacute, acute, or early subacute infarction. Age-related, ex-vacuo dilatation of the ventricles and sulci. There are normal signal voids in the larger intracranial vessels. The paranasal sinuses and mastoid air cells are predominantly clear. The marrow signal pattern is within normal limits. IMPRESSION: 1. No acute intracranial abnormality. Chronic microangiopathic changes and ex vacuo dilatation of the ventricles and sulci. Reported By:
[2018-09-14] MEDS ORDERED: ZESTRIL TAB 20 MG ONE (13:15)
[2018-09-14] MEDS: SYNTHROID 100 mcg TAB PO SCH (13:17)
[2018-09-14] MEDS: FOLIC ACID TAB 1 MG PO SCH (13:17)
[2018-09-14] MEDS: ASPIRIN 81 MG CHEWTAB PO SCH (13:17)
[2018-09-14] MEDS: ZESTRIL TAB 20 MG PO SCH (13:18)
[2018-09-14] MEDS ORDERED: COLACE CAP 100 MG PO SCH (21:00)
[2018-09-15] MEDS: ZOVIRAX PO SCH ×2 (05:08→08:39)
[2018-09-15] MEDS: SOLU-Medrol 40 MG VIAL IVP SCH (05:08)
[2018-09-15 05:35] LABS: BASOPHILS % (AUTO) 0.1 % (0.2-1.0); HEMATOCRIT 36.6 % (36.0-47.0); HEMOGLOBIN 12.8 g/dL (12.0-16.0); LYMPHOCYTES % (AUTO) 19.2 % (21.0-51.0); MEAN CORPUSCULAR HGB CONC 34.8 g/dL (33.0-35.0); MEAN CORPUSCULAR VOLUME 91.9 fL (80.0-100.0); MEAN PLATELET VOLUME 8.7 fL (7.4-11.0); MONOCYTES # (AUTO) 0.3 x10^3/uL (0.3-0.8); MONOCYTES % (AUTO) 5.3 % (0.0-13.0); NEUTROPHILS % (AUTO) 75.4 % (42.0-75.0); PLATELET COUNT 248 X10^3/uL (150.0-450.0); RED BLOOD COUNT 3.99 X10^6/uL (3.5-5.4); RED CELL DISTRIBUTION WIDTH 12.7 % (11.6-16.5); WHITE BLOOD COUNT 5.4 X10^3/uL (3.6-10.0)
[2018-09-15 05:38] LABS: ALANINE AMINOTRANSFERASE 14 Units/L (12-78); ALKALINE PHOSPHATASE 33 Units/L (46-116); ASPARTATE AMINO TRANSFERASE 15 Units/L (15-37); BLOOD UREA NITROGEN 18 mg/dL (7-18); CALCIUM 9.6 mg/dL (8.5-10.1); CHLORIDE 106 mmol/L (98-107); COR CA(FOR HYPOALB) 10.4 mg/dL (8.5-10.1); COR NA(FOR HYPERGLY) 139 mmol/L (136-145); CREATININE 0.74 mg/dL (0.55-1.02); SODIUM 138 mmol/L (136-145); TOTAL PROTEIN 6.1 g/dL (6.4-8.2); eGFR NON BLACK RACES > 60 (>60)
--- NOTE | 2018-09-15 06:24 | RAD ---
HISTORY: Follow-up ileus Study: KUB Comparison: 09/14/2018 Findings: The abdominal gas pattern is nonspecific and nonobstructive. Gas is seen throughout the small and large bowel. Findings may be consistent with a mild ileus. Small bowel obstruction felt less likely. No abnormal masses or abnormal calcifications are identified. The regional skeleton is intact. IMPRESSION: Findings most consistent with mild ileus Reported By:
[2018-09-15 07:53] VITALS: BP 113/55
[2018-09-15] MEDS ORDERED: ZESTRIL TAB 20 MG ONE (08:29)
[2018-09-15] MEDS: LOVENOX INJ 40 MG SYR SC SCH (08:38)
[2018-09-15] MEDS: ZESTRIL TAB 20 MG PO SCH (08:38)
[2018-09-15] MEDS: FOLIC ACID TAB 1 MG PO SCH (08:39)
[2018-09-15] MEDS: SYNTHROID 100 mcg TAB PO SCH (08:39)
[2018-09-15] MEDS: ASPIRIN 81 MG CHEWTAB PO SCH (08:39)
[2018-09-15] MEDS ORDERED: NORVASC TAB 5 MG PO SCH (09:00)
[2018-09-15] MEDS: NS 1000 ML 1,000 ML IV SCH (10:49)
[2018-09-15] MEDS: MILK OF MAGNESIA PO SCH (10:55)
== END 2018-09-15 11:55 | disposition home health service (06) ==
LOC: MED/SURG 16:55 → ER 16:55 → MED/SURG 19:00
PROVIDERS: ADMIT Obstetrics & Gynecology Obstetrics; ATTEND Internal Medicine
DX: E78.2 Mixed hyperlipidemia; R42 Dizziness and giddiness; R94.4 Abnormal results of kidney function studies; R53.1 Weakness; I10 Essential (primary) hypertension; M13.89 Other specified arthritis, multiple sites; Z79.899 Other long term (current) drug therapy; R26.89 Other abnormalities of gait and mobility
CPT/HCPCS: 36415; 70450; 70551; 71010; 71045; 74000; 74018; 80053; 81001; 82550; 82553; 84484; 85025; 87086; 93880; 94760; 96365; 96367; 96372; 96374; 97110; 97116; 97162; 97166; 97535; 99284; A4216; A4222; G0378; J1650; J2920; J7030